=== PATIENT | female | born 1995 | race Caucasian/White ===

== ENCOUNTER 2021-02-28 21:03 | Emergency (ER) | payer OTHER ==
--- NOTE | 2021-02-28 21:06 | ERPHSYRPT ---
- History of Present Illness Time Seen by Provider: 02/28/21 21:05 Source: patient Exam Limitations: no limitations Physician History: This is a 25-year-old white female who has a dental fracture right upper molar tooth #1. She states that the tooth has been fractured for a while but the pain started 3 days ago. She has not seen a dentist. She tells me that she has no known drug allergies. Timing/Duration: gradual onset, days (3) Severity: mild (To moderate) ENT Location: dental (Right upper molar pain) Prearrival Treatment: no prearrival treatment Modifying Factors: Improves With: activity Associated Symptoms: tooth pain (Right upper molar) Allergies/Adverse Reactions: No Known Drug Allergies Allergy (Unverified 02/28/21 21:14) Home Medications: Vilazodone HCl [Viibryd] 40 mg PO DAILY 02/28/21 [History] Travel Risk - International Travel Have you traveled outside of the country in past 3 weeks: No - Coronavirus Screening Are you exhibiting any of the following symptoms?: No Close contact with a COVID-19 positive Pt in past 14-21 Days: No - Review of Systems Constitutional: No Symptoms Eyes: No Symptoms Respiratory: No Symptoms Cardiac: No Symptoms Abdominal/Gastrointestinal: No Symptoms Genitourinary Symptoms: No Symptoms Musculoskeletal: No Symptoms Skin: No Symptoms Neurological: No Symptoms Psychological: No Symptoms Endocrine: No Symptoms Hematologic/Lymphatic: No Symptoms Immunological/Allergic: No Symptoms All Other Systems: Reviewed and Negative - Past Medical History Pertinent Past Medical History: Yes - Past Surgical History Past Surgical History: Yes - Nursing Vital Signs Nursing Vital Signs: Initial Vital Signs Temperature 98.2 F 02/28/21 21:04 Pulse Rate 86 02/28/21 21:04 Respiratory Rate 18 02/28/21 21:04 O2 Sat by Pulse Oximetry 98 02/28/21 21:04 Pain Scale Pain Intensity 8 - Physical Exam General Appearance: mild distress, alert, anxiety Eye Exam: bilateral eye: normal inspection, PERRL, EOMI Ear Exam: bilateral ear: auricle normal Nasal Exam: normal inspection Throat Exam: pharynx normal, dental tenderness (Fractured tooth molar #1 right upper), No foreign body, No uvula swelling Neck Exam: normal inspection, non-tender, supple, full range of motion, trachea midline Cardiovascular/Respiratory Exam: chest non-tender, no respiratory distress Abdominal Exam: non-tender Neurologic Exam: alert, oriented x 3, cooperative, station supervisor II-XII nml as tested, normal mood/affect, nml cerebellar function, nml station & gait, sensation nml Skin Exam: normal color, warm, dry SpO2 Interpretation: normal O2 Delivery: Room Air - Course Nursing assessment & vital signs reviewed: Yes - Progress Progress: unchanged Counseled pt/family regarding: diagnosis, need for follow-up, rad results - Departure Departure Disposition: Home Clinical Impression: Dental infection, Pain, dental Condition: Stable Critical Care Time: No Referrals: MIRIAN BUSH PA [Primary Care Provider] - Follow up/PCP as directed Additional Instructions: Follow-up with a dentist tomorrow for definitive care. Add ibuprofen 600 mg with food 3 times a day. May also use Tylenol 650 mg orally every 6 hours for pain control beginning tomorrow afternoon Prescriptions: Amoxicillin 500 mg Cap [Amoxil 500 mg] 500 mg PO TID #30 cap
[2021-02-28 21:34] VITALS: O2SAT 98
[2021-02-28] MEDS ORDERED: AMOXIL 500 MG PO ONE (21:47)
[2021-02-28] MEDS ORDERED: NORCO 5/325 MG PO ONE (21:47)
[2021-02-28] MEDS ORDERED: NORCO 5/325 MG ONE (21:59)
[2021-02-28] MEDS ORDERED: AMOXIL 500 MG ONE (22:00)
[2021-02-28 22:13] VITALS: BP 172/111; PULSE 69
== END 2021-02-28 22:13 | disposition home or self-care (01) ==
LOC: ED 21:03
DX: K04.7 Periapical abscess without sinus (principal); K03.81 Cracked tooth
CPT/HCPCS: 99283; A9270-GY

== ENCOUNTER 2021-06-29 13:04 | Emergency (ER) | payer OTHER ==
[2021-06-29 14:13] LABS: Bacteria FEW /HPF (NEGATIVE); Epithelial Cells FEW /HPF (FEW); Mucus MODERATE /HPF (NEGATIVE); WBC 26-50 /HPF (0-5)
[2021-06-29 14:17] LABS: Appearance SLIGHTLY CLOUDY (CLEAR); Bilirubin NEGATIVE (NEGATIVE); Glucose NEGATIVE (NEGATIVE); Ketones NEGATIVE (NEGATIVE); Nitrite NEGATIVE (NEGATIVE); Ph 6.5 (5-6); Protein,Urine Dip TRACE (Negative); RBC NEGATIVE Ery/ul (0-5); Urine Cultured Indicated? YES; Urobilinogen 1 mg/dL (0-1)
[2021-06-29 14:18] LABS: Dipstick done @ ? MAIN LAB
--- NOTE | 2021-06-29 14:48 | ERPHSYRPT ---
- History of Present Illness Time Seen by Provider: 06/29/21 13:35 Source: patient Exam Limitations: no limitations Patient Subjective Stated Complaint: Pt states that she is 6.3 weeks and is having some cramping on the left lower side and was bleeding a little bit yesterday and does always bleed after sex and so they stopped approx 4 days ago Triage Nursing Assessment: Pt brought to the ER by her grandmother, hypertensive, rates abdominal cramping as 07/30, this is her 2nd child, other is 5 years old, pulses normal, skin n/w/d, no difficulties with bowel movements, pt states that she is on macrobid for a UTI and she has been on it for approx 3 days, doesn't appear to be in any distress Physician History: Patient is a 25-year-old female presents to our ED with left-sided pelvic cramping. Patient currently being treated for urinary tract infection. Patient is currently 3.1 weeks . She is G2, P1. Patient describes pain as a cramping sensation in her left pelvis. Patient had some slight spotting yesterday. No active bleeding today. No fever. No nausea or vomiting. No diarrhea. No rash. Symptoms are mild to moderate in intensity. No specific worsening improving factors. Patient has not followed up with an [employer] [employer] physician as of yet. But patient states she plans on seeing Dr. Leblanc. Patient voices no other complaint or concerns at this time. Timing/Duration: today Severity: moderate Modifying Factors: Improves With: nothing Associated Symptoms: denies symptoms Allergies/Adverse Reactions: No Known Drug Allergies Allergy (Verified 06/29/21 13:39) Home Medications: Nitrofurantoin Macro 100 mg [Macrobid 100MG Capsule] 100 mg PO BID 06/29/21 [History] Hx Tetanus, Diphtheria Vaccination/Date Given: Yes Hx Influenza Vaccination/Date Given: No Travel Risk - International Travel Have you traveled outside of the country in past 3 weeks: No - Coronavirus Screening Are you exhibiting any of the following symptoms?: No - Vaccine Status Have you recieved a Covid-19 vaccination: No - Review of Systems Constitutional: No Symptoms, No Fever, No Chills Eyes: No Symptoms Ears, Nose, & Throat: No Symptoms Respiratory: No Symptoms, No Cough, No Dyspnea Cardiac: No Symptoms, No Chest Pain, No Edema, No Syncope Abdominal/Gastrointestinal: No Symptoms, No Abdominal Pain, No Nausea, No Vomiting, No Diarrhea Genitourinary Symptoms: No Symptoms, No Dysuria Musculoskeletal: No Symptoms, No Back Pain, No Neck Pain Skin: No Symptoms, No Rash Neurological: No Symptoms, No Dizziness, No Focal Weakness, No Sensory Changes Psychological: No Symptoms Endocrine: No Symptoms Hematologic/Lymphatic: No Symptoms Immunological/Allergic: No Symptoms All Other Systems: Reviewed and Negative - Past Medical History Pertinent Past Medical History: Yes Psycho-Social History: Anxiety, Depression Other Medical History: personality disorder - Past Surgical History Past Surgical History: Yes Gastrointestinal: Appendectomy - Social History Smoking Status: Current every day smoker Exposure to second hand smoke: No Drug Use: none Patient Lives Alone: No - Female History Hx Now: Yes Expected Date of Delivery: 02/19/22 - Nursing Vital Signs Nursing Vital Signs: Initial Vital Signs Temperature 97.5 F 06/29/21 13:28 Pulse Rate 97 H 06/29/21 13:28 Blood Pressure 141/82 06/29/21 13:28 O2 Sat by Pulse Oximetry 100 06/29/21 13:28 Pain Scale Pain Intensity 3 - Physical Exam General Appearance: no apparent distress, alert Eye Exam: PERRL/EOMI, eyes nml inspection Ears, Nose, Throat Exam: normal ENT inspection, TMs normal, pharynx normal, moist mucous membranes Neck Exam: normal inspection, non-tender, supple, full range of motion Respiratory Exam: normal breath sounds, lungs clear, No respiratory distress Cardiovascular Exam: regular rate/rhythm, normal heart sounds, normal peripheral pulses Gastrointestinal/Abdomen Exam: soft, normal bowel sounds, No tenderness, No mass Pelvic Exam: normal external exam, other (Cervical os is closed), No cervical m otion tenderness, No vaginal bleeding, No vaginal discharge Back Exam: normal inspection, normal range of motion, No CVA tenderness, No vertebral tenderness Extremity Exam: normal inspection, normal range of motion, pelvis stable Neurologic Exam: alert, oriented x 3, cooperative, normal mood/affect, nml cerebellar function, nml station & gait, sensation nml, No motor deficits Skin Exam: normal color, warm, dry, No rash Lymphatic Exam: No adenopathy SpO2 Interpretation: normal SpO2: 100 O2 Delivery: Room Air - Course Nursing assessment & vital signs reviewed: Yes Ordered Tests: Active Orders 24 hr Category Date Time Status OB <14 WKS 1ST GESTATION [US] Stat Exams 06/29/21 13:52 Completed CBC W DIFF Stat Lab 06/29/21 15:00 Completed CMP Stat Lab 06/29/21 15:00 Completed CULTURE,URINE Stat Lab 06/29/21 Received HCG, Quantitative (Inhouse) Stat Lab 06/29/21 15:48 Completed HCG,QUALITATIVE URINE Stat Lab 06/29/21 13:52 Completed UA W/RFX CULTURE Stat Lab 06/29/21 Completed Wet Prep Stat Lab 06/29/21 Completed Medication Summary Discontinued Medications Generic Name Dose Route Start Last Admin Trade Name Freq PRN Reason Stop Dose Admin Azithromycin 1,000 mg 06/29/21 16:33 Azithromycin 250 Mg Tablet PO 06/29/21 16:34 STAT ONE Nitrofurantoin Macrocrystals 100 mg 06/29/21 15:41 06/29/21 15:46 Nitrofurantoin Macro 100 Mg Capsule PO 06/29/21 15:42 Not Given STAT ONE Potassium Chloride 40 meq 06/29/21 16:32 Potassium Chloride 10 Meq Tablet PO 06/29/21 16:33 STAT ONE Lab/Rad Data: Laboratory Result Diagrams 06/29/21 15:00 06/29/21 15:00 Laboratory Results 06/29/21 06/29/21 06/29/21 Range/Units Unknown Unknown Unknown WBC (4.0-10.5) K/mm3 RBC (4.1-5.4) M/mm3 Hgb (12.0-16.0) gm/dl Hct (35-47) % MCV (78-100) fl MCH (26-32) pg MCHC (32-36) g/dl RDW (11.5-14.0) % Plt Count (150-450) K/mm3 MPV (7.5-11.0) fl Gran % (36.0-66.0) % Eos # (Auto) (0-0.5) Absolute Lymphs (auto) (1.0-4.6) Absolute Monos (auto) (0.0-1.3) Lymphocytes % (24.0-44.0) % Monocytes % (0.0-12.0) % Eosinophils % (0.00-5.0) % Basophils % (0.0-0.4) % Absolute Granulocytes (1.4-6.9) Basophils # (0-0.4) Sodium (137-145) mmol/L Potassium (3.5-5.1) mmol/L Chloride (98-107) mmol/L Carbon Dioxide (22-30) mmol/L Anion Gap (5-15) MEQ/L BUN (7-17) mg/dL Creatinine (0.52-1.04) mg/dL Estimated GFR ML/MIN Glucose (74-106) mg/dL Calcium (8.4-10.2) mg/dL Total Bilirubin (0.2-1.3) mg/dL AST (14-36) U/L ALT (0-35) U/L Alkaline Phosphatase (38-126) U/L Serum Total Protein (6.3-8.2) g/dL Albumin (3.5-5.0) g/dL Beta HCG, Quant mIU/ml Urinalys Dipstick Clnc MAIN LAB Urine Color YELLOW (YELLOW) Urine Appearance SLIGHTLY CLOUDY (CLEAR) Urine pH 6.5 (5-6) Ur Specific [place] 1.030 (1.005-1.025) POC Urine Protein Conf TRACE (Negative) Urine Ketones NEGATIVE (NEGATIVE) Urine Nitrite NEGATIVE (NEGATIVE) Urine Bilirubin NEGATIVE (NEGATIVE) Urine Urobilinogen 1 (0-1) mg/dL Urine Leukocytes MODERATE (NEGATIVE) Urine WBC (Auto) 26-50 (0-5) /HPF Urine RBC (Auto) 6-10 (0-2) /HPF U Epithel Cells (Auto) FEW (FEW) /HPF Urine Bacteria (Auto) FEW (NEGATIVE) /HPF Urine RBC NEGATIVE (0-5) Kory/ul Urine Mucus (Auto) MODERATE (NEGATIVE) /HPF Ur Culture Indicated? YES Urine Glucose NEGATIVE (NEGATIVE) mg/dL Urine HCG, Qual (Negative) WBC (Wet Prep) Moderate RBC (Wet Prep) Rare Epi Cells (Wet Prep) Moderate Bacteria (Wet Prep) Moderate Clue Cells (Wet Prep) None Seen Trichomonas (Wet Prep) None Seen Budding Yeast (Wet Prp) None Seen Chlamydia DNA Probe DETECTED (NEGATIVE) N.gonorrhoeae DNA Probe NOT DETECTED (NEGATIVE) ABO Group Rh Factor Antibody Screen (NEGATIVE) 06/29/21 06/29/21 06/29/21 Range/Units 15:48 15:00 15:00 WBC (4.0-10.5) K/mm3 RBC (4.1-5.4) M/mm3 Hgb (12.0-16.0) gm/dl Hct (35-47) % MCV (78-100) fl MCH (26-32) pg MCHC (32-36) g/dl RDW (11.5-14.0) % Plt Count (150-450) K/mm3 MPV (7.5-11.0) fl Gran % (36.0-66.0) % Eos # (Auto) (0-0.5) Absolute Lymphs (auto) (1.0-4.6) Absolute Monos (auto) (0.0-1.3) Lymphocytes % (24.0-44.0) % Monocytes % (0.0-12.0) % Eosinophils % (0.00-5.0) % Basophils % (0.0-0.4) % Absolute Granulocytes (1.4-6.9) Basophils # (0-0.4) Sodium 138 (137-145) mmol/L Potassium 3.4 L (3.5-5.1) mmol/L Chloride 103 (98-107) mmol/L Carbon Dioxide 23 (22-30) mmol/L Anion Gap 15.9 H (5-15) MEQ/L BUN 6 L (7-17) mg/dL Creatinine 0.49 L (0.52-1.04) mg/dL Estimated GFR > 60.0 ML/MIN Glucose 80 (74-106) mg/dL Calcium 9.1 (8.4-10.2) mg/dL Total Bilirubin 0.50 (0.2-1.3) mg/dL AST 24 (14-36) U/L ALT 18 (0-35) U/L Alkaline Phosphatase 77 (38-126) U/L Serum Total Protein 8.2 (6.3-8.2) g/dL Albumin 4.4 (3.5-5.0) g/dL Beta HCG, Quant 39903 mIU/ml Urinalys Dipstick Clnc Urine Color (YELLOW) Urine Appearance (CLEAR) Urine pH (5-6) Ur Specific [place] (1.005-1.025) POC Urine Protein Conf (Negative) Urine Ketones (NEGATIVE) Urine Nitrite (NEGATIVE) Urine Bilirubin (NEGATIVE) Urine Urobilinogen (0-1) mg/dL Urine Leukocytes (NEGATIVE) Urine WBC (Auto) (0-5) /HPF Urine RBC (Auto) (0-2) /HPF U Epithel Cells (Auto) (FEW) /HPF Urine Bacteria (Auto) (NEGATIVE) /HPF Urine RBC (0-5) Kory/ul Urine Mucus (Auto) (NEGATIVE) /HPF Ur Culture Indicated? Urine Glucose (NEGATIVE) mg/dL Urine HCG, Qual (Negative) WBC (Wet Prep) RBC (Wet Prep) Epi Cells (Wet Prep) Bacteria (Wet Prep) Clue Cells (Wet Prep) Trichomonas (Wet Prep) Budding Yeast (Wet Prp) Chlamydia DNA Probe (NEGATIVE) N.gonorrhoeae DNA Probe (NEGATIVE) ABO Group O Rh Factor POSITIVE Antibody Screen NEGATIVE (NEGATIVE) 06/29/21 06/29/21 Range/Units 15:00 13:52 WBC 9.3 (4.0-10.5) K/mm3 RBC 4.76 (4.1-5.4) M/mm3 Hgb 12.9 (12.0-16.0) gm/dl Hct 40.5 (35-47) % MCV 85.1 (78-100) fl MCH 27.1 (26-32) pg MCHC 31.9 L (32-36) g/dl RDW 15.3 H (11.5-14.0) % Plt Count 355 (150-450) K/mm3 MPV 10.0 (7.5-11.0) fl Gran % 63.8 (36.0-66.0) % Eos # (Auto) 0.31 (0-0.5) Absolute Lymphs (auto) 2.39 (1.0-4.6) Absolute Monos (auto) 0.66 (0.0-1.3) Lymphocytes % 25.6 (24.0-44.0) % Monocytes % 7.1 (0.0-12.0) % Eosinophils % 3.3 (0.00-5.0) % Basophils % 0.2 (0.0-0.4) % Absolute Granulocytes 5.96 (1.4-6.9) Basophils # 0.02 (0-0.4) Sodium (137-145) mmol/L Potassium (3.5-5.1) mmol/L Chloride (98-107) mmol/L Carbon Dioxide (22-30) mmol/L Anion Gap (5-15) MEQ/L BUN (7-17) mg/dL Creatinine (0.52-1.04) mg/dL Estimated GFR ML/MIN Glucose (74-106) mg/dL Calcium (8.4-10.2) mg/dL Total Bilirubin (0.2-1.3) mg/dL AST (14-36) U/L ALT (0-35) U/L Alkaline Phosphatase (38-126) U/L Serum Total Protein (6.3-8.2) g/dL Albumin (3.5-5.0) g/dL Beta HCG, Quant mIU/ml Urinalys Dipstick Clnc Urine Color (YELLOW) Urine Appearance (CLEAR) Urine pH (5-6) Ur Specific [place] (1.005-1.025) POC Urine Protein Conf (Negative) Urine Ketones (NEGATIVE) Urine Nitrite (NEGATIVE) Urine Bilirubin (NEGATIVE) Urine Urobilinogen (0-1) mg/dL Urine Leukocytes (NEGATIVE) Urine WBC (Auto) (0-5) /HPF Urine RBC (Auto) (0-2) /HPF U Epithel Cells (Auto) (FEW) /HPF Urine Bacteria (Auto) (NEGATIVE) /HPF Urine RBC (0-5) Kory/ul Urine Mucus (Auto) (NEGATIVE) /HPF Ur Culture Indicated? Urine Glucose (NEGATIVE) mg/dL Urine HCG, Qual POSITIVE (Negative) WBC (Wet Prep) RBC (Wet Prep) Epi Cells (Wet Prep) Bacteria (Wet Prep) Clue Cells (Wet Prep) Trichomonas (Wet Prep) Budding Yeast (Wet Prp) Chlamydia DNA Probe (NEGATIVE) N.gonorrhoeae DNA Probe (NEGATIVE) ABO Group Rh Factor Antibody Screen (NEGATIVE) - Progress Progress: improved Progress Note: Patient reassessed. She feels well. Work-up reveals viable likely twins. Patient chlamydia positive. Patient received a gram of azithromycin in our ED. Patient has a urinary tract infection she is currently being treated with Macrobid. Hypokalemia. Potassium replaced. 06/29/21 16:33 Counseled pt/family regarding: lab results, diagnosis, need for follow-up, rad results - Departure Departure Disposition: Home Clinical Impression: UTI (urinary tract infection), Pelvic pain, Chlamydia, Hypokalemia Condition: Stable Critical Care Time: No Referrals: MIRIAN BUSH PA [Primary Care Provider] - Follow up/PCP as directed Additional Instructions: Discharge/Care Plan ELIZABETH GARCIA was seen on 06/29/21 in the Emergency Room. The patient was counseled regarding Diagnosis,Lab results, Imaging studies, need for follow up and when to return to the Emergency Room. Prescriptions given: Discharge Note I have spoken with the patient and/or caregivers. I have explained the patient's condition, diagnosis and treatment plan based on the information available to me at this time. I have answered the patient's and/or caregiver's questions and addressed any concerns. The patient and/or caregivers have as good understanding of the patient's diagnosis, condition and treatment plan as can be expected at this point. The vital signs have been stable. The patient's condition is stable and appropriate for discharge from the emergency department. The patient will pursue further outpatient evaluation with the primary care physician or other designated or consulting physician as outlined in the discharge instructions. The patient and/or caregivers are agreeable to this plan of care and follow-up instructions have been explained in detail. The patient and/or caregivers have received these instruction. The patient/and or caregivers are aware that any significant change in condition or worsening of symptoms should prompt an immediate return to this or the closest emergency department or call 911.
[2021-06-29 15:11] LABS: Absolute Neutrophil Ct (ANC) 5.96 (1.4-6.9); Basophil (Absolute #) 0.02 (0-0.4); Eosinophil % 3.3 % (0.00-5.0); Eosinophil (Absolute #) 0.31 (0-0.5); Hematocrit 40.5 % (35-47); Hemoglobin 12.9 gm/dl (12.0-16.0); Lymphocyte (Absolute #) 2.39 (1.0-4.6); Lymphocytes % 25.6 % (24.0-44.0); Mean Cell Volume 85.1 fl (78-100); Mean Corpuscular Hemoglobin 27.1 pg (26-32); Mean Corpuscular Hgb Concent. 31.9 g/dl (32-36); Monocyte (Absolute #) 0.66 (0.0-1.3); Monocytes % 7.1 % (0.0-12.0); Neutrophil % 63.8 % (36.0-66.0); Platelet Count 355 K/mm3 (150-450); Red Blood Count 4.76 M/mm3 (4.1-5.4); Red Cell Distribution Width 15.3 % (11.5-14.0); White Blood Count 9.3 K/mm3 (4.0-10.5)
--- NOTE | 2021-06-29 15:25 | XRAY ---
Exam: Transvaginal OB ultrasound, less than 14 weeks from 06/29/2021. Comparison: None. Indication: 25 year-old female with pelvic pain. Findings: An anteflexed uterus is seen measuring 8.9 cm x 5.2 cm x 6.0 cm. Within the upper uterine segment toward the left, there is a normal shaped gestational sac containing a 1.7 mm diameter yolk sac. No cardiac activity or pole is seen. The gestational sac size reveals a mean diameter of 8.5 mm suggesting a gestational age of 5 weeks, 3 day, plus or -3 days. Within the upper uterine segment toward the right of midline, there appears to be a smaller gestational sac which contains a yolk sac measuring 2.2 mm in diameter. Again, no cardiac activity or pole is seen. Mean gestational sac size is 5.8 mm consistent with a gestational age of 5 weeks, 1 day, plus or -3 days. Adjacent to this second smaller gestational sac, there are couple small curvilinear strips of fluid which could represent hemorrhage, or alternatively, a collapsing third gestational sac. No fluid is seen within the lower endometrial canal or cervical canal. No myometrial uterine mass is seen. There is no evidence of free fluid within the cul-de-sac. The maternal right ovary measures 2.6 cm x 2.5 cm. The maternal left ovary measures 2.5 cm x 3.5 cm. Normal Doppler signal and color perfusion is seen within each maternal ovary. Impression: 1. There are 2 small gestational sacs within the upper uterine segment, each containing an unremarkable small yolk sac. However, no pole or cardiac activity is seen as of yet. The gestational sac on the right is slightly smaller than the gestational sac on the left. Furthermore, there are couple curvilinear strips of fluid adjacent to the smaller gestational sac on the right. I am not sure whether this is due to adjacent subchorionic hemorrhage, or alternatively, a collapsing third gestational sac. No fluid/blood is seen within the lower endometrial canal or cervical canal. 2. The maternal ovaries appear essentially unremarkable.
[2021-06-29 15:27] LABS: ALBUMIN 4.4 g/dL (3.5-5.0); ALKALINE PHOSPHATASE 77 U/L (38-126); ANION GAP 15.9 MEQ/L (5-15); BLOOD UREA NITROGEN 6 mg/dL (7-17); CHLORIDE 103 mmol/L (98-107); Calcium 9.1 mg/dL (8.4-10.2); Carbon Dioxide 23 mmol/L (22-30); Creatinine 1 0.49 mg/dL (0.52-1.04); EST GLOMERULAR FILTRATION RATE > 60.0 ML/MIN; Glucose 80 mg/dL (74-106); Potassium 3.4 mmol/L (3.5-5.1); SGOT/AST 24 U/L (14-36); SGPT/ALT 18 U/L (0-35); SODIUM 138 mmol/L (137-145); Total Protein 8.2 g/dL (6.3-8.2)
[2021-06-29 15:29] LABS: Bacteria Moderate; Clue Cells None Seen; Red Blood Cells Rare; Trichomonas None Seen; White Blood Cells Moderate; Yeast None Seen
[2021-06-29] MEDS ORDERED: Macrobid 100MG Capsule PO ONE (15:41)
[2021-06-29 15:50] LABS: CHLAMYDIA DNA DETECTED (NEGATIVE); GC DNA Probe NOT DETECTED (NEGATIVE)
[2021-06-29 15:50] LABS: ABO TYPING O; Antibody Screen NEGATIVE (NEGATIVE); RH TYPING POSITIVE
[2021-06-29 16:06] VITALS: BP 125/80
[2021-06-29] MEDS ORDERED: Klor Con 10 MEQ PO ONE ×2 (16:32→16:37)
[2021-06-29] MEDS ORDERED: Zithromax 250 MG TABLET PO ONE (16:33)
[2021-06-29] MEDS ORDERED: Zithromax 250 MG TABLET ONE (16:37)
[2021-06-29 16:43] VITALS: PULSE 86; O2SAT 96
== END 2021-06-29 16:49 | disposition home or self-care (01) ==
LOC: ED 13:04
DX: O23.41 Unspecified infection of urinary tract in pregnancy, first trimester (principal); O98.311 Other infections with a predominantly sexual mode of transmission complicating pregnancy, first trimester; A56.8 Sexually transmitted chlamydial infection of other sites; N39.0 Urinary tract infection, site not specified; Z3A.01 Less than 8 weeks gestation of pregnancy; E87.6 Hypokalemia; Z72.0 Tobacco use
CPT/HCPCS: 36415; 76801; 80053; 81015; 84702; 84703; 85025; 86850; 86900; 86901; 87086; 87210; 87491; 87591; 99284; A9270-GY

== ENCOUNTER 2021-09-28 08:39 | Emergency (ER) | payer OTHER ==
[2021-09-28] MEDS ORDERED: TYLENOL 325 MG PO ONE (09:07)
[2021-09-28] MEDS ORDERED: Zofran 4 MG/2 ML VIAL IV ONE (09:07)
[2021-09-28] MEDS ORDERED: Sodium Chloride 0.9% 1000 ML 1,000 ML IV STA (09:07)
--- NOTE | 2021-09-28 09:07 | ERPHSYRPT ---
- History of Present Illness Time Seen by Provider: 09/28/21 09:10 Source: patient Exam Limitations: no limitations Physician History: Patient is a 26-year-old female currently 18 weeks . 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 Patient presents to our ED complaining of left sided pelvic pain. Patient also complains of decreased p.o. Patient concerned that she is dehydrated. No associated nausea vomiting or diarrhea. Patient requesting IV fluid hydration. Patient's symptoms started approximately 2 days ago. Symptoms have been progressive. Patient called her [employer] doctor, Dr. Leblanc. Patient states the office told patient to come to our ED for an evaluation. Patient is otherwise healthy. She voices no other complaint or concerns at this time. Portions of this note were created with voice recognition technology. There may be grammatical, spelling, punctuation or sound alike errors Timing/Duration: day(s) (2 days ago) Severity: moderate Modifying Factors: Improves With: nothing Associated Symptoms: loss of appetite, No nausea, No vomiting, No abdominal pain, No shortness of breath, No cough, No chills, No chest pain, No fever, No m alaise, No syncope, No seizure Allergies/Adverse Reactions: No Known Drug Allergies Allergy (Verified 09/28/21 09:09) Hx Tetanus, Diphtheria Vaccination/Date Given: Yes Hx Influenza Vaccination/Date Given: No Travel Risk - Vaccine Status Have you recieved a Covid-19 vaccination: No - Review of Systems Constitutional: No Symptoms, No Fever, No Chills Eyes: No Symptoms Ears, Nose, & Throat: No Symptoms Respiratory: No Symptoms, No Cough, No Dyspnea Cardiac: No Symptoms, No Chest Pain, No Edema, No Syncope Abdominal/Gastrointestinal: No Symptoms, No Abdominal Pain, No Nausea, No Vomiti ng, No Diarrhea Genitourinary Symptoms: No Symptoms, No Dysuria Musculoskeletal: No Symptoms, No Back Pain, No Neck Pain Skin: No Symptoms, No Rash Neurological: No Symptoms, No Dizziness, No Focal Weakness, No Sensory Changes Psychological: No Symptoms Endocrine: No Symptoms Hematologic/Lymphatic: No Symptoms Immunological/Allergic: No Symptoms All Other Systems: Reviewed and Negative - Past Medical History Pertinent Past Medical History: Yes Psycho-Social History: Anxiety, Depression - Past Surgical History Past Surgical History: Yes Gastrointestinal: Appendectomy - Social History Smoking Status: Current every day smoker Exposure to second hand smoke: No Drug Use: none Patient Lives Alone: No - Nursing Vital Signs Nursing Vital Signs: Initial Vital Signs Temperature 98.0 F 09/28/21 09:09 Pulse Rate 92 H 09/28/21 09:09 Respiratory Rate 18 09/28/21 09:09 Blood Pressure 139/67 09/28/21 09:09 O2 Sat by Pulse Oximetry 96 09/28/21 09:09 Pain Scale Pain Intensity 4 - Physical Exam General Appearance: no apparent distress, alert Eye Exam: PERRL/EOMI, eyes nml inspection Ears, Nose, Throat Exam: normal ENT inspection, TMs normal, pharynx normal, moist mucous membranes Neck Exam: normal inspection, non-tender, supple, full range of motion Respiratory Exam: normal breath sounds, lungs clear, airway intact, No respiratory distress Cardiovascular Exam: regular rate/rhythm, normal heart sounds, normal peripheral pulses Gastrointestinal/Abdomen Exam: soft, normal bowel sounds, other (Gravid abdomen, left lower pelvic pain.), No tenderness, No mass Pelvic Exam: not done (Patient declined pelvic exam. She states she had 1 done less than a month ago) Back Exam: normal inspection, normal range of motion, No CVA tenderness, No vertebral tenderness Extremity Exam: normal inspection, normal range of motion, pelvis stable Neurologic Exam: alert, oriented x 3, cooperative, normal mood/affect, nml cerebellar function, nml station & gait, sensation nml, No motor deficits Skin Exam: normal color, warm, dry, No rash Lymphatic Exam: No adenopathy SpO2 Interpretation: normal SpO2: 97 O2 Delivery: Room Air - Course Nursing assessment & vital signs reviewed: Yes - Radiology Ultrasound Exam OB Ultrasound: discussed w/radiologist (Per crime lab technician both fetuses are viabl e) Ordered Tests: Active Orders 24 hr Category Date Time Status IV Insertion STAT Care 09/28/21 09:07 Active OB LIMITED [US] Stat Exams 09/28/21 09:06 Completed CBC W DIFF Stat Lab 09/28/21 09:22 Completed CMP Stat Lab 09/28/21 09:22 Completed UA W/RFX CULTURE Stat Lab 09/28/21 09:33 Completed Medication Summary Generic Name Dose Route Start Last Admin Trade Name Freq PRN Reason Stop Dose Admin Nitrofurantoin Macrocrystals 100 mg 09/28/21 11:59 Nitrofurantoin Macro 100 Mg Capsule PO 09/28/21 12:00 STAT ONE Discontinued Medications Generic Name Dose Route Start Last Admin Trade Name Cha PRN Reason Stop Dose Admin Acetaminophen 650 mg 09/28/21 09:07 09/28/21 09:31 Acetaminophen 325 Mg Tablet PO 09/28/21 09:08 650 mg STAT ONE Administration Acetaminophen Confirm 09/28/21 09:13 Acetaminophen 325 Mg Tablet Administered 09/28/21 09:14 Dose 975 mg .ROUTE .STK-MED ONE Sodium Chloride 1,000 mls @ 999 mls/hr 09/28/21 09:07 09/28/21 10:53 Sodium Chloride 0.9% 1000 Ml IV 09/28/21 10:07 Infused .Q1H1M STA Infusion Sodium Chloride Confirm 09/28/21 09:13 Sodium Chloride 0.9% 1000 Ml Administered 09/28/21 09:14 Dose 1,000 mls @ ud .ROUTE .STK-MED ONE Ondansetron HCl 4 mg 09/28/21 09:07 09/28/21 09:32 Ondansetron Hcl 4 Mg/2 Ml Vial IV 09/28/21 09:08 Not Given STAT ONE Ondansetron HCl Confirm 09/28/21 09:12 Ondansetron Hcl 4 Mg/2 Ml Vial Administered 09/28/21 09:13 Dose 4 mg .ROUTE .STK-MED ONE Lab/Rad Data: Laboratory Result Diagrams 09/28/21 09:22 09/28/21 09:22 Laboratory Results 09/28/21 09/28/21 09/28/21 Range/Units 09:36 09:33 09:22 WBC (4.0-10.5) x10^3/uL RBC (4.1-5.4) x10^6/uL Hgb (12.0-16.0) g/dL Hct (35-47) % MCV (78-100) fL MCH (26-32) pg MCHC (32-36) g/dL RDW (11.5-14.0) % Plt Count (150-450) x10^3/uL MPV (7.5-11.0) fL Gran % (36.0-66.0) % Immature Gran % (Auto) (0.00-0.4) % Nucleat RBC Rel Count (0.00-0.1) % Eos # (Auto) (0-0.5) x10^3/uL Immature Gran # (Auto) (0.00-0.03) x10^3u/L Absolute Lymphs (auto) (1.0-4.6) x10^3/uL Absolute Monos (auto) (0.0-1.3) x10^3/uL Absolute Nucleated RBC (0.00-0.01) x10^3u/L Lymphocytes % (24.0-44.0) % Monocytes % (0.0-12.0) % Eosinophils % (0.00-5.0) % Basophils % (0.0-0.4) % Absolute Granulocytes (1.4-6.9) x10^3/uL Basophils # (0-0.4) x10^3/uL Sodium 134 L (137-145) mmol/L Potassium 4.0 (3.5-5.1) mmol/L Chloride 107 (98-107) mmol/L Carbon Dioxide 18 L (22-30) mmol/L Anion Gap 12.6 (5-15) MEQ/L BUN 5 L (7-17) mg/dL Creatinine 0.37 L (0.52-1.04) mg/dL Estimated GFR > 60.0 ML/MIN Glucose 79 (74-106) mg/dL Calcium 8.8 (8.4-10.2) mg/dL Total Bilirubin 0.20 (0.2-1.3) mg/dL AST 19 (14-36) U/L ALT 15 (0-35) U/L Alkaline Phosphatase 75 (38-126) U/L Serum Total Protein 7.3 (6.3-8.2) g/dL Albumin 3.7 (3.5-5.0) g/dL Urinalys Dipstick Clnc MAIN LAB Urine Color YELLOW (YELLOW) Urine Appearance SLIGHTLY CLOUDY (CLEAR) Urine pH 6.0 (5-6) Ur Specific [place] >=1.030 (1.005-1.025) POC Urine Protein Conf NEGATIVE (Negative) Urine Ketones NEGATIVE (NEGATIVE) Urine Nitrite NEGATIVE (NEGATIVE) Urine Bilirubin NEGATIVE (NEGATIVE) Urine Urobilinogen 1 (0-1) mg/dL Urine Leukocytes TRACE (NEGATIVE) Urine WBC (Auto) 6-10 (0-5) /HPF Urine RBC (Auto) 0-2 (0-2) /HPF U Epithel Cells (Auto) FEW (FEW) /HPF Urine Bacteria (Auto) NONE (NEGATIVE) /HPF Urine RBC NEGATIVE (0-5) Kory/ul Urine Mucus (Auto) SLIGHT (NEGATIVE) /HPF Ur Culture Indicated? NO Urine Glucose NEGATIVE (NEGATIVE) mg/dL Chlamydia DNA Probe NOT DETECTED (NEGATIVE) N.gonorrhoeae DNA Probe NOT DETECTED (NEGATIVE) 09/28/21 Range/Units 09:22 WBC 9.7 (4.0-10.5) x10^3/uL RBC 3.70 L (4.1-5.4) x10^6/uL Hgb 10.3 L (12.0-16.0) g/dL Hct 31.7 L (35-47) % MCV 85.7 (78-100) fL MCH 27.8 (26-32) pg MCHC 32.5 (32-36) g/dL RDW 15.0 H (11.5-14.0) % Plt Count 281 (150-450) x10^3/uL MPV 10.3 (7.5-11.0) fL Gran % 75.1 H (36.0-66.0) % Immature Gran % (Auto) 0.3 (0.00-0.4) % Nucleat RBC Rel Count 0.0 (0.00-0.1) % Eos # (Auto) 0.19 (0-0.5) x10^3/uL Immature Gran # (Auto) 0.03 (0.00-0.03) x10^3u/L Absolute Lymphs (auto) 1.55 (1.0-4.6) x10^3/uL Absolute Monos (auto) 0.61 (0.0-1.3) x10^3/uL Absolute Nucleated RBC 0.00 (0.00-0.01) x10^3u/L Lymphocytes % 16.0 L (24.0-44.0) % Monocytes % 6.3 (0.0-12.0) % Eosinophils % 2.0 (0.00-5.0) % Basophils % 0.3 (0.0-0.4) % Absolute Granulocytes 7.29 H (1.4-6.9) x10^3/uL Basophils # 0.03 (0-0.4) x10^3/uL Sodium (137-145) mmol/L Potassium (3.5-5.1) mmol/L Chloride (98-107) mmol/L Carbon Dioxide (22-30) mmol/L Anion Gap (5-15) MEQ/L BUN (7-17) mg/dL Creatinine (0.52-1.04) mg/dL Estimated GFR ML/MIN Glucose (74-106) mg/dL Calcium (8.4-10.2) mg/dL Total Bilirubin (0.2-1.3) mg/dL AST (14-36) U/L ALT (0-35) U/L Alkaline Phosphatase (38-126) U/L Serum Total Protein (6.3-8.2) g/dL Albumin (3.5-5.0) g/dL Urinalys Dipstick Clnc Urine Color (YELLOW) Urine Appearance (CLEAR) Urine pH (5-6) Ur Specific [place] (1.005-1.025) POC Urine Protein Conf (Negative) Urine Ketones (NEGATIVE) Urine Nitrite (NEGATIVE) Urine Bilirubin (NEGATIVE) Urine Urobilinogen (0-1) mg/dL Urine Leukocytes (NEGATIVE) Urine WBC (Auto) (0-5) /HPF Urine RBC (Auto) (0-2) /HPF U Epithel Cells (Auto) (FEW) /HPF Urine Bacteria (Auto) (NEGATIVE) /HPF Urine RBC (0-5) Kory/ul Urine Mucus (Auto) (NEGATIVE) /HPF Ur Culture Indicated? Urine Glucose (NEGATIVE) mg/dL Chlamydia DNA Probe (NEGATIVE) N.gonorrhoeae DNA Probe (NEGATIVE) - Progress Progress: improved Progress Note: Patient reassessed. She is well. Pain significantly improved. IV fluids administered. Ultrasound reveals both feet is viable. UTI observed on urinalysis. Patient received a dose of Macrobid in our ED. A prescription for Macrobid was forwarded to patient's pharmacy case discussed with Dr. Leblanc. Patient agrees to follow-up with Dr. Leblanc within 48 hours for evaluation. Portions of this note were created with voice recognition technology. There may be grammatical, spelling, punctuation or sound alike errors 09/28/21 12:04 Discussed with DrNixon: Sixto Will see patient in: office Counseled pt/family regarding: lab results, diagnosis, need for follow-up, rad results - Departure Departure Disposition: Home Clinical Impression: UTI (urinary tract infection), Dehydration Condition: Stable Critical Care Time: No Referrals: MIRIAN BUSH PA [NON-STAFF PHY W/O PRIVILEGES] - Follow up/PCP as directed Additional Instructions: Discharge/Care Plan GARCIAELIZABETH CLARK was seen on 09/28/21 in the Emergency Room. The patient was counseled regarding Diagnosis,Lab results, Imaging studies, need for follow up and when to return to the Emergency Room. Prescriptions given: Discharge Note I have spoken with the patient and/or caregivers. I have explained the patient's condition, diagnosis and treatment plan based on the information available to me at this time. I have answered the patient's and/or caregiver's questions and addressed any concerns. The patient and/or caregivers have as good understanding of the patient's diagnosis, condition and treatment plan as can be expected at this point. The vital signs have been stable. The patient's condition is stable and appropriate for discharge from the emergency department. The patient will pursue further outpatient evaluation with the primary care physician or other designated or consulting physician as outlined in the discharge instructions. The patient and/or caregivers are agreeable to this plan of care and follow-up instructions have been explained in detail. The patient and/or caregivers have received these instruction. The patient/and or caregivers are aware that any significant change in condition or worsening of symptoms should prompt an immediate return to this or the closest emergency department or call 911. Prescriptions: Nitrofurantoin Macro 100 mg [Macrobid 100MG Capsule] 100 mg PO BID 7 Days #14 cap
[2021-09-28] MEDS ORDERED: Zofran 4 MG/2 ML VIAL ONE (09:12)
[2021-09-28] MEDS ORDERED: Sodium Chloride 0.9% 1000 ML 1,000 ML ONE (09:13)
[2021-09-28] MEDS ORDERED: TYLENOL 325 MG ONE (09:13)
[2021-09-28 09:26] LABS: Absolute Neutrophil Ct (ANC) 7.29 x10^3/uL (1.4-6.9); Basophil (Absolute #) 0.03 x10^3/uL (0-0.4); Eosinophil (Absolute #) 0.19 x10^3/uL (0-0.5); Hematocrit 31.7 % (35-47); Hemoglobin 10.3 g/dL (12.0-16.0); Lymphocyte (Absolute #) 1.55 x10^3/uL (1.0-4.6); Mean Cell Volume 85.7 fL (78-100); Mean Corpuscular Hemoglobin 27.8 pg (26-32); Mean Corpuscular Hgb Concent. 32.5 g/dL (32-36); Mean Platelet Volume 10.3 fL (7.5-11.0); Monocyte (Absolute #) 0.61 x10^3/uL (0.0-1.3); Monocytes % 6.3 % (0.0-12.0); Neutrophil % 75.1 % (36.0-66.0); Platelet Count 281 x10^3/uL (150-450); White Blood Count 9.7 x10^3/uL (4.0-10.5)
[2021-09-28 09:31] VITALS: PULSE 92
[2021-09-28 09:39] LABS: Appearance SLIGHTLY CLOUDY (CLEAR); Bilirubin NEGATIVE (NEGATIVE); Dipstick done @ ? MAIN LAB; Glucose NEGATIVE (NEGATIVE); Ketones NEGATIVE (NEGATIVE); Nitrite NEGATIVE (NEGATIVE); Protein,Urine Dip NEGATIVE (Negative); RBC NEGATIVE Ery/ul (0-5); Specific Gravity >=1.030 (1.005-1.025); Urobilinogen 1 mg/dL (0-1)
[2021-09-28 09:42] LABS: Epithelial Cells FEW /HPF (FEW); Mucus SLIGHT /HPF (NEGATIVE); RBC 0-2 /HPF (0-2)
[2021-09-28 09:43] LABS: ALBUMIN 3.7 g/dL (3.5-5.0); ALKALINE PHOSPHATASE 75 U/L (38-126); ANION GAP 12.6 MEQ/L (5-15); BLOOD UREA NITROGEN 5 mg/dL (7-17); CHLORIDE 107 mmol/L (98-107); Calcium 8.8 mg/dL (8.4-10.2); Carbon Dioxide 18 mmol/L (22-30); Creatinine 1 0.37 mg/dL (0.52-1.04); EST GLOMERULAR FILTRATION RATE > 60.0 ML/MIN; Glucose 79 mg/dL (74-106); SGOT/AST 19 U/L (14-36); SGPT/ALT 15 U/L (0-35); SODIUM 134 mmol/L (137-145); Total Protein 7.3 g/dL (6.3-8.2)
--- NOTE | 2021-09-28 10:06 | XRAY ---
Indication: Pelvic pain. Limited twin OB ultrasound performed. Comparison: August 02, 2021 Again viable intrauterine twin . Twin A and twin B heart rate is both 144 BPM. Comment: Preliminary report was given.
[2021-09-28 10:15] LABS: Urine Cultured Indicated? NO
[2021-09-28 11:12] LABS: CHLAMYDIA DNA NOT DETECTED (NEGATIVE); GC DNA Probe NOT DETECTED (NEGATIVE)
[2021-09-28] MEDS ORDERED: Macrobid 100MG Capsule PO ONE (11:59)
[2021-09-28] MEDS ORDERED: Macrobid 100MG Capsule ONE (12:05)
[2021-09-28 12:09] VITALS: BP 121/70; O2SAT 95
== END 2021-09-28 12:18 | disposition home or self-care (01) ==
LOC: ED 08:39
DX: O23.42 Unspecified infection of urinary tract in pregnancy, second trimester (principal); N39.0 Urinary tract infection, site not specified; Z3A.18 18 weeks gestation of pregnancy; E86.0 Dehydration; R10.2 Pelvic and perineal pain; Z72.0 Tobacco use; Z28.310 Unvaccinated for COVID-19
CPT/HCPCS: 36000; 36415; 76815; 80053; 81015; 85025; 87491; 87591; 96360; 99284; J2405; A9270-GY

== ENCOUNTER 2021-12-20 16:39 | Observation (INO) | payer OTHER ==
[2021-12-20 17:35] LABS: Absolute Neutrophil Ct (ANC) 6.45 x10^3/uL (1.4-6.9); Basophil (Absolute #) 0.01 x10^3/uL (0-0.4); Eosinophil (Absolute #) 0.17 x10^3/uL (0-0.5); Hematocrit 26.9 % (35-47); Lymphocyte (Absolute #) 1.42 x10^3/uL (1.0-4.6); Lymphocytes % 16.3 % (24.0-44.0); Mean Cell Volume 81.3 fL (78-100); Mean Corpuscular Hemoglobin 24.2 pg (26-32); Mean Corpuscular Hgb Concent. 29.7 g/dL (32-36); Mean Platelet Volume 10.5 fL (7.5-11.0); Monocyte (Absolute #) 0.62 x10^3/uL (0.0-1.3); Monocytes % 7.1 % (0.0-12.0); Neutrophil % 74.2 % (36.0-66.0); Platelet Count 300 x10^3/uL (150-450); Red Blood Count 3.31 x10^6/uL (4.1-5.4); Red Cell Distribution Width 14.8 % (11.5-14.0); White Blood Count 8.7 x10^3/uL (4.0-10.5)
[2021-12-20 17:49] LABS: ALBUMIN 3.3 g/dL (3.5-5.0); ALKALINE PHOSPHATASE 110 U/L (38-126); ANION GAP 8.2 MEQ/L (5-15); BLOOD UREA NITROGEN 6 mg/dL (7-17); CHLORIDE 109 mmol/L (98-107); Calcium 8.5 mg/dL (8.4-10.2); Carbon Dioxide 21 mmol/L (22-30); Creatinine 1 0.41 mg/dL (0.52-1.04); EST GLOMERULAR FILTRATION RATE > 60.0 ML/MIN; Glucose 95 mg/dL (74-106); Potassium 3.5 mmol/L (3.5-5.1); SGOT/AST 17 U/L (14-36); SGPT/ALT 13 U/L (0-35); SODIUM 135 mmol/L (137-145); Total Protein 6.7 g/dL (6.3-8.2); Uric Acid 4.1 mg/dL (2.6-6.0)
[2021-12-20 18:23] LABS: Appearance SLIGHTLY CLOUDY (CLEAR); Bacteria RARE /HPF (NEGATIVE); Bilirubin SMALL (NEGATIVE); Dipstick done @ ? MAIN LAB; Epithelial Cells RARE /HPF (FEW); Glucose NEGATIVE (NEGATIVE); Ketones TRACE (NEGATIVE); Mucus MANY /HPF (NEGATIVE); Nitrite NEGATIVE (NEGATIVE); Protein,Urine Dip 100 (Negative); RBC NEGATIVE Ery/ul (0-5); Specific Gravity >=1.030 (1.005-1.025); Urobilinogen 2 mg/dL (0-1)
[2021-12-20 18:28] LABS: Creatinine, Urine Random 316.3 mg/dl; TP, Urine Random < 5.0 mg/dl (<12); Urine Cultured Indicated? YES
[2021-12-20] MEDS ORDERED: PROCARDIA 10 MG PO ONE ×2 (18:44→19:31)
[2021-12-20] MEDS ORDERED: PROCARDIA 10 MG ONE ×2 (18:49→19:30)
[2021-12-20] MEDS ORDERED: NORCO 5/325 MG PO PRN (20:45)
[2021-12-20] MEDS ORDERED: NORCO 5/325 MG ONE (20:52)
[2021-12-20] MEDS ORDERED: Trandate 100 MG ONE (21:02)
[2021-12-20 21:28] VITALS: BP 144/82
[2021-12-20 21:29] VITALS: PULSE 114; O2SAT 97
[2021-12-20] MEDS ORDERED: Trandate 100 MG PO SCH (22:00)
== END 2021-12-20 21:16 | disposition home or self-care (01) ==
LOC: OB 16:39
PROVIDERS: ADMIT Obstetrics & Gynecology; ATTEND Obstetrics & Gynecology
DX: O30.043 Twin pregnancy, dichorionic/diamniotic, third trimester (principal); Z3A.30 30 weeks gestation of pregnancy
CPT/HCPCS: 36415; 80053; 81015; 82570; 84156; 84550; 85025; 87086; G0378; A9270-GY

== ENCOUNTER 2021-12-27 16:32 | Observation (INO) | payer OTHER ==
[2021-12-27] MEDS ORDERED: Trandate 100 MG PO ONE ×2 (16:54→18:30)
[2021-12-27] MEDS ORDERED: Trandate 100 MG ONE (16:58)
[2021-12-27 17:06] LABS: Hematocrit 27.3 % (35-47); Hemoglobin 8.1 g/dL (12.0-16.0); Mean Cell Volume 84.3 fL (78-100); Mean Corpuscular Hgb Concent. 29.7 g/dL (32-36); Mean Platelet Volume 10.9 fL (7.5-11.0); Platelet Count 290 x10^3/uL (150-450); Red Blood Count 3.24 x10^6/uL (4.1-5.4); Red Cell Distribution Width 16.3 % (11.5-14.0); White Blood Count 14.2 x10^3/uL (4.0-10.5)
[2021-12-27 17:16] LABS: ALBUMIN 3.4 g/dL (3.5-5.0); ALKALINE PHOSPHATASE 116 U/L (38-126); ANION GAP 11.9 MEQ/L (5-15); BLOOD UREA NITROGEN 10 mg/dL (7-17); CHLORIDE 108 mmol/L (98-107); Calcium 9.3 mg/dL (8.4-10.2); Carbon Dioxide 20 mmol/L (22-30); Creatinine 1 0.58 mg/dL (0.52-1.04); EST GLOMERULAR FILTRATION RATE > 60.0 ML/MIN; Glucose 115 mg/dL (74-106); SGOT/AST 21 U/L (14-36); SGPT/ALT 17 U/L (0-35); SODIUM 136 mmol/L (137-145); Total Protein 6.7 g/dL (6.3-8.2); Uric Acid 5.8 mg/dL (2.6-6.0)
[2021-12-27 18:06] LABS: Bacteria RARE /HPF (NEGATIVE); Epithelial Cells RARE /HPF (FEW); Mucus SLIGHT /HPF (NEGATIVE); RBC 0-2 /HPF (0-2)
[2021-12-27 18:11] LABS: Appearance CLEAR (CLEAR); Bilirubin NEGATIVE (NEGATIVE); Dipstick done @ ? MAIN LAB; Glucose NEGATIVE (NEGATIVE); Ketones NEGATIVE (NEGATIVE); Nitrite NEGATIVE (NEGATIVE); Protein,Urine Dip 30 (Negative); RBC NEGATIVE Ery/ul (0-5); Specific Gravity >=1.030 (1.005-1.025); Urobilinogen 0.2 mg/dL (0-1)
[2021-12-27 18:16] LABS: Creatinine, Urine Random 167.7 mg/dl; Protein Creatinine Ratio, Ran. 0.29 mg/mg (0.0-0.15); Urine Cultured Indicated? NO
[2021-12-27] MEDS ORDERED: Ambien 5 MG Tablet PO PRN (18:34)
[2021-12-27] MEDS ORDERED: Trandate 100 MG PO SCH (21:00)
[2021-12-27] MEDS ORDERED: Tums EX 750 MG PO PRN (22:11)
[2021-12-28] MEDS ORDERED: TRANDATE 100MG/20 ML MDV IV PRN ×2 (04:36)
[2021-12-28] MEDS ORDERED: TRANDATE 100MG/20 ML MDV IV ONE (04:36)
[2021-12-28] MEDS ORDERED: TRANDATE 100 MG/20 ML MDV FOR DRIP IV ONE (05:12)
[2021-12-28] MEDS ORDERED: Magnesium Sulfate 40 Gm/1000 Ml H2O Premix*** 1,000 ML IV SCH (05:30)
[2021-12-28] MEDS ORDERED: Lactated Ringers 1,000 ML IV SCH (05:30)
[2021-12-28 05:49] LABS: Hematocrit 26.3 % (35-47); Hemoglobin 7.8 g/dL (12.0-16.0); Mean Cell Volume 82.4 fL (78-100); Mean Corpuscular Hemoglobin 24.5 pg (26-32); Mean Corpuscular Hgb Concent. 29.7 g/dL (32-36); Mean Platelet Volume 11.2 fL (7.5-11.0); Platelet Count 274 x10^3/uL (150-450); Red Blood Count 3.19 x10^6/uL (4.1-5.4); Red Cell Distribution Width 17.2 % (11.5-14.0); White Blood Count 12.4 x10^3/uL (4.0-10.5)
[2021-12-28 06:04] LABS: ALBUMIN 3.3 g/dL (3.5-5.0); ALKALINE PHOSPHATASE 109 U/L (38-126); ANION GAP 8.8 MEQ/L (5-15); BLOOD UREA NITROGEN 8 mg/dL (7-17); CHLORIDE 106 mmol/L (98-107); Calcium 9.6 mg/dL (8.4-10.2); Carbon Dioxide 21 mmol/L (22-30); Creatinine 1 0.43 mg/dL (0.52-1.04); EST GLOMERULAR FILTRATION RATE > 60.0 ML/MIN; Glucose 78 mg/dL (74-106); Potassium 4.1 mmol/L (3.5-5.1); SGOT/AST 22 U/L (14-36); SGPT/ALT 16 U/L (0-35); SODIUM 132 mmol/L (137-145); Total Protein 6.5 g/dL (6.3-8.2)
[2021-12-28 06:05] LABS: INR 0.96 (0.8-3.0); PROTIME 10.2 SECONDS (9.4-12.5); PTT 21.1 SECONDS (25.1-36.5)
[2021-12-28] MEDS ORDERED: TRANDATE 20 MG/4 ML SYRINGE IV ONE (06:28)
[2021-12-28 06:53] VITALS: BP 163/88; PULSE 84; O2SAT 94
[2021-12-28] MEDS ORDERED: APRESOLINE 20 MG/ML INJ IV ONE (07:35)
[2021-12-28 08:02] LABS: Appearance CLEAR (CLEAR); Bilirubin NEGATIVE (NEGATIVE); Glucose NEGATIVE (NEGATIVE); Ketones NEGATIVE (NEGATIVE); Nitrite NEGATIVE (NEGATIVE); Ph 6.5 (5-6); Protein,Urine Dip NEGATIVE (Negative); RBC NEGATIVE Ery/ul (0-5); Specific Gravity 1.025 (1.005-1.025); Urobilinogen 0.2 mg/dL (0-1)
[2021-12-28 08:03] LABS: Dipstick done @ ? MAIN LAB
[2021-12-28 08:04] LABS: Mucus SLIGHT /HPF (NEGATIVE); Urine Cultured Indicated? NO
== END 2021-12-28 08:03 ==
LOC: OB 16:32
PROVIDERS: ADMIT Obstetrics & Gynecology; ATTEND Obstetrics & Gynecology
DX: O30.003 Twin pregnancy, unspecified number of placenta and unspecified number of amniotic sacs, third trimester (principal); O13.3 Gestational [pregnancy-induced] hypertension without significant proteinuria, third trimester; Z3A.31 31 weeks gestation of pregnancy
CPT/HCPCS: 36415; 80053; 81015; 82570; 83735; 84156; 84550; 85027; 85610; 85730; G0378; J0360; A9270-GY

== ENCOUNTER 2024-06-03 14:34 | Emergency (ER) | payer OTHER ==
--- NOTE | 2024-06-03 14:42 | ERPHSYRPT ---
- History of Present Illness Time Seen by Provider: 06/03/24 14:42 Source: patient Exam Limitations: no limitations Physician History: This is an overweight 28-year-old white female patient who arrives to the emergency room after instructions given to her by her director economic's office. Patient was at work today and she was dizzy and therefore she took her blood pressure and it measured 152/92. She waited a bit and then repeated her blood pressure reading was 154/100. On arrival to the emergency department here she first measured 136/93. A second reading shows 130/92 at the time of my examination. Patient denies chest pain. Patient denies shortness of breath. Patient has had no complaints of vaginal bleeding. She has no visual changes. She denies headache. She has never been diagnosed with preeclampsia. Her last she had a miscarriage. She has not been on her anxiety medication because she is now . Because of her symptoms, she called the OB office and they told her to come to the emergency room for evaluation. Timing/Duration: today Severity: mild Associated Symptoms: denies symptoms Allergies/Adverse Reactions: No Known Drug Allergies Allergy (Verified 06/03/24 14:49) Home Medications: Docosahexaenoic Acid [ Dha] 1 tab PO DAILY 06/03/24 [History] Hx Tetanus, Diphtheria Vaccination/Date Given: Yes Hx Influenza Vaccination/Date Given: No Hx Pneumococcal Vaccination/Date Given: Yes Travel Risk - International Travel Have you traveled outside of the country in past 3 weeks: No - Emerging Infectious Disease Are you exhibiting symptoms associated with any current EIDs: No - Review of Systems Constitutional: No Symptoms Eyes: No Symptoms Ears, Nose, & Throat: No Symptoms Respiratory: No Symptoms Cardiac: No Symptoms Abdominal/Gastrointestinal: No Symptoms Genitourinary Symptoms: No Symptoms Musculoskeletal: No Symptoms Skin: No Symptoms Neurological: No Symptoms Psychological: No Symptoms Endocrine: No Symptoms Hematologic/Lymphatic: No Symptoms Immunological/Allergic: No Symptoms All Other Systems: Reviewed and Negative - Past Medical History Pertinent Past Medical History: Yes Psycho-Social History: Anxiety, Depression - Past Surgical History Past Surgical History: Yes Gastrointestinal: Appendectomy - Social History Smoking Status: Former smoker - Nursing Vital Signs Nursing Vital Signs: Initial Vital Signs Temperature 98.1 F 06/03/24 14:44 Pulse Rate 91 H 06/03/24 14:44 Respiratory Rate 16 06/03/24 14:44 Blood Pressure 136/93 06/03/24 14:44 O2 Sat by Pulse Oximetry 99 06/03/24 14:44 Pain Scale Pain Intensity 0 - Physical Exam General Appearance: no apparent distress, alert, anxiety Eye Exam: PERRL/EOMI, eyes nml inspection Ears, Nose, Throat Exam: normal ENT inspection, moist mucous membranes Neck Exam: normal inspection, non-tender, supple, full range of motion Respiratory Exam: normal breath sounds, lungs clear, airway intact, No chest t enderness, No respiratory distress Cardiovascular Exam: regular rate/rhythm, normal heart sounds, normal peripheral pulses Gastrointestinal/Abdomen Exam: soft, normal bowel sounds, No tenderness Pelvic Exam: not done Rectal Exam: not done Back Exam: normal inspection, normal range of motion, No CVA tenderness, No vertebral tenderness Extremity Exam: normal inspection, normal range of motion, pelvis stable Neurologic Exam: alert, oriented x 3, cooperative, extrusion operator II-XII nml as tested, nml cerebellar function, nml station & gait, sensation nml Skin Exam: normal color, warm, dry Lymphatic Exam: No adenopathy SpO2 Interpretation: normal O2 Delivery: Room Air - Course Nursing assessment & vital signs reviewed: Yes Ordered Tests: Active Orders 24 hr Category Date Time Status CBC W DIFF Stat Lab 06/03/24 15:10 Completed CMP Stat Lab 06/03/24 15:10 Completed HCG, Quantitative (Inhouse) Stat Lab 06/03/24 15:10 Completed UA W/RFX UR CULTURE Stat Lab 06/03/24 15:17 Completed Lab/Rad Data: Laboratory Result Diagrams 06/03/24 15:10 06/03/24 15:10 Laboratory Results 06/03/24 06/03/24 06/03/24 Range/Units 15:17 15:10 15:10 WBC (3.98-10.04) x10^3/uL RBC (3.93-5.22) x10^6/uL Hgb (11.2-15.7) g/dL Hct (34.1-44.9) % MCV (79.4-94.8) fL MCH (25.6-32.2) pg MCHC (32.2-35.5) g/dL RDW (11.7-14.4) % Plt Count (182-369) x10^3/uL MPV (9.4-12.3) fL Gran % (34.0-71.1) % Immature Gran % (Auto) (0.001-0.429) % Nucleat RBC Rel Count (0.00-0.2) % Eos # (Auto) (0.04-0.36) x10^3/uL Immature Gran # (Auto) (0.001-0.031) x10^3u/L Absolute Lymphs (auto) (1.18-3.74) x10^3/uL Absolute Monos (auto) (0.24-0.86) x10^3/uL Absolute Nucleated RBC (0.00-0.012) x10^3u/L Lymphocytes % (19.3-51.7) % Monocytes % (4.7-12.5) % Eosinophils % (0.7-5.8) % Basophils % (0.1-1.2) % Absolute Granulocytes (1.56-6.13) x10^3/uL Basophils # (0.01-0.08) x10^3/uL Sodium 137 (135-145) mmol/L Potassium 3.9 (3.5-5.1) mmol/L Chloride 102 (98-107) mmol/L Carbon Dioxide 20 L (22-30) mmol/L Anion Gap 18.1 H (5-15) MEQ/L BUN 9 (7-17) mg/dL Creatinine 0.56 (0.52-1.04) mg/dL Estimated GFR 129.0 ML/MIN Glucose 79 (74-106) mg/dL Calcium 9.4 (8.4-10.2) mg/dL Total Bilirubin 0.40 (0.2-1.3) mg/dL AST 24 (14-36) U/L ALT 20 (0-35) U/L Alkaline Phosphatase 78 (38-126) U/L Serum Total Protein 7.9 (6.3-8.2) g/dL Albumin 4.7 (3.5-5.0) g/dL Beta HCG, Quant 28894 mIU/ml Urine Color Yellow (Yellow) Urine Appearance Clear (Clear) Urine pH 7.0 (4.6-8.0) Ur Specific [place] <=1.005 (1.005-1.030) Urine Protein Negative (Negative) Urine Glucose (UA) Negative (Negative) mg/dL Urine Ketones Negative (Negative) Urine Blood Negative (Negative) Urine Nitrite Negative (Negative) Urine Bilirubin Negative (Negative) Urine Urobilinogen 0.2 (0.2) mg/dL Ur Leukocyte Esterase Negative (Negative) U Hyaline Cast (Auto) NONE SEEN (0-2) /LPF Urine Microscopic RBC 0-2 (0-5) /HPF Urine Microscopic WBC 0-2 (0-5) /HPF Ur Epithelial Cells None Seen (None Seen) /HPF Urine Bacteria None Seen (None Seen) /HPF Urine Culture Reflexed NO (NO) 06/03/24 Range/Units 15:10 WBC 9.3 (3.98-10.04) x10^3/uL RBC 4.82 (3.93-5.22) x10^6/uL Hgb 13.2 (11.2-15.7) g/dL Hct 41.2 (34.1-44.9) % MCV 85.5 (79.4-94.8) fL MCH 27.4 (25.6-32.2) pg MCHC 32.0 L (32.2-35.5) g/dL RDW 15.1 H (11.7-14.4) % Plt Count 292 (182-369) x10^3/uL MPV 9.6 (9.4-12.3) fL Gran % 60.4 (34.0-71.1) % Immature Gran % (Auto) 0.2 (0.001-0.429) % Nucleat RBC Rel Count 0.0 (0.00-0.2) % Eos # (Auto) 0.41 H (0.04-0.36) x10^3/uL Immature Gran # (Auto) 0.02 (0.001-0.031) x10^3u/L Absolute Lymphs (auto) 2.46 (1.18-3.74) x10^3/uL Absolute Monos (auto) 0.74 (0.24-0.86) x10^3/uL Absolute Nucleated RBC 0.00 (0.00-0.012) x10^3u/L Lymphocytes % 26.6 (19.3-51.7) % Monocytes % 8.0 (4.7-12.5) % Eosinophils % 4.4 (0.7-5.8) % Basophils % 0.4 (0.1-1.2) % Absolute Granulocytes 5.58 (1.56-6.13) x10^3/uL Basophils # 0.04 (0.01-0.08) x10^3/uL Sodium (135-145) mmol/L Potassium (3.5-5.1) mmol/L Chloride (98-107) mmol/L Carbon Dioxide (22-30) mmol/L Anion Gap (5-15) MEQ/L BUN (7-17) mg/dL Creatinine (0.52-1.04) mg/dL Estimated GFR ML/MIN Glucose (74-106) mg/dL Calcium (8.4-10.2) mg/dL Total Bilirubin (0.2-1.3) mg/dL AST (14-36) U/L ALT (0-35) U/L Alkaline Phosphatase (38-126) U/L Serum Total Protein (6.3-8.2) g/dL Albumin (3.5-5.0) g/dL Beta HCG, Quant mIU/ml Urine Color (Yellow) Urine Appearance (Clear) Urine pH (4.6-8.0) Ur Specific [place] (1.005-1.030) Urine Protein (Negative) Urine Glucose (UA) (Negative) mg/dL Urine Ketones (Negative) Urine Blood (Negative) Urine Nitrite (Negative) Urine Bilirubin (Negative) Urine Urobilinogen (0.2) mg/dL Ur Leukocyte Esterase (Negative) U Hyaline Cast (Auto) (0-2) /LPF Urine Microscopic RBC (0-5) /HPF Urine Microscopic WBC (0-5) /HPF Ur Epithelial Cells (None Seen) /HPF Urine Bacteria (None Seen) /HPF Urine Culture Reflexed (NO) - Progress Progress: unchanged Progress Note: 06/03/24 15:31 Medical decision making and the assignment of moderate complexity to this patient's medical issue today is based on review of the patient's past medical history, review of the patient's medication list, review the patient drug allergy list, history present illness and physical findings on examination. The workup in this patient includes CBC, CMP, quantitative test, urinalysis. Differential diagnosis includes but is not limited to anxiety induced hypertension, preeclampsia The patient did ask whether or not I would be ordering an ultrasound. She stated that her last miscarriage was at 6 weeks. I believe this was the primary reason why she came in. However, as I told her the important issue at this point is to make sure she does not have preeclampsia. I do not feel it is necessary at this visit in the emergency department for me to order an OB ultrasound. Patient has no significant abdominal pain and she has no vaginal bleeding. I encouraged her to call her OB office tomorrow, 06/04/2024, to make arrangements for an outpatient OB ultrasound in their office or through the radiology department. Counseled pt/family regarding: lab results, diagnosis, need for follow-up Medical Desision Making - Diagnostic Testing Diagnostic test were ordered, analyzed, and reviewed by me: Yes - Risk of complications Low Risk: Low risk of morbidity from additional dx testing or treatment - Departure Departure Disposition: Home Clinical Impression: Hypertension Condition: Stable Critical Care Time: No Referrals: TATY EARLY MINGLE OPERATOR [Primary Care Provider] - Follow up/PCP as directed Additional Instructions: Plenty fluids. Take your medications as prescribed. Call your director economic's office today, 06/03/2024, to make arrangements to be seen in the next 2 to 3 days for repeat quantitative hCG and to arrange an outpatient OB ultrasound if indicated
[2024-06-03 14:57] VITALS: TEMP 98.1
[2024-06-03 15:06] VITALS: RESP 17
[2024-06-03 15:19] LABS: Absolute Neutrophil Ct (ANC) 5.58 x10^3/uL (1.56-6.13); BASOPHIL % 0.4 % (0.1-1.2); Basophil (Absolute #) 0.04 x10^3/uL (0.01-0.08); Eosinophil % 4.4 % (0.7-5.8); Eosinophil (Absolute #) 0.41 x10^3/uL (0.04-0.36); Hematocrit 41.2 % (34.1-44.9); Hemoglobin 13.2 g/dL (11.2-15.7); IMMATURE GRAN # 0.02 x10^3u/L (0.001-0.031); IMMATURE GRAN % 0.2 % (0.001-0.429); Lymphocyte (Absolute #) 2.46 x10^3/uL (1.18-3.74); Lymphocytes % 26.6 % (19.3-51.7); Mean Cell Volume 85.5 fL (79.4-94.8); Mean Corpuscular Hemoglobin 27.4 pg (25.6-32.2); Mean Platelet Volume 9.6 fL (9.4-12.3); Monocyte (Absolute #) 0.74 x10^3/uL (0.24-0.86); Neutrophil % 60.4 % (34.0-71.1); Platelet Count 292 x10^3/uL (182-369); Red Blood Count 4.82 x10^6/uL (3.93-5.22); Red Cell Distribution Width 15.1 % (11.7-14.4); White Blood Count 9.3 x10^3/uL (3.98-10.04)
[2024-06-03 15:28] LABS: Appearance Clear (Clear); Bilirubin Negative (Negative); Blood Negative (Negative); Glucose, Urine Negative (Negative); Ketones Negative (Negative); Leukocyte Esterase Negative (Negative); Nitrite Negative (Negative); Protein,Urine Dip Negative (Negative); Specific Gravity <=1.005 (1.005-1.030); Urobilinogen 0.2 mg/dL (0.2)
[2024-06-03 15:33] LABS: ALBUMIN 4.7 g/dL (3.5-5.0); ANION GAP 18.1 MEQ/L (5-15); BILIRUBIN,TOTAL 0.4 mg/dL (0.2-1.3); Calcium 9.4 mg/dL (8.4-10.2); Creatinine 1 0.56 mg/dL (0.52-1.04); Potassium 3.9 mmol/L (3.5-5.1); Total Protein 7.9 g/dL (6.3-8.2)
[2024-06-03 15:34] LABS: Bacteria None Seen /HPF (None Seen); Epithelial Cells None Seen /HPF (None Seen); Hyaline Casts NONE SEEN /LPF (0-2); RBC 0-2 /HPF (0-5); WBC 0-2 /HPF (0-5)
[2024-06-03 16:06] VITALS: BP 111/81; PULSE 84; O2SAT 100
== END 2024-06-03 16:28 | disposition home or self-care (01) ==
LOC: ED 14:34
DX: O16.1 Unspecified maternal hypertension, first trimester (principal); Z3A.01 Less than 8 weeks gestation of pregnancy; R42 Dizziness and giddiness
CPT/HCPCS: 36415; 80053; 81001; 84702; 85025; 99282; 99283

== ENCOUNTER 2024-06-21 16:35 | Emergency (ER) | payer OTHER ==
[2024-06-21 16:56] VITALS: TEMP 98.9; O2SAT 100
[2024-06-21] MEDS ORDERED: Sodium Chloride 0.9% 1000 ML 1,000 ML ONE (17:25)
[2024-06-21] MEDS: Sodium Chloride 0.9% 1000 ML 1,000 ML IV STA (17:26)
[2024-06-21 17:33] LABS: Absolute Neutrophil Ct (ANC) 6.91 x10^3/uL (1.56-6.13); BASOPHIL % 0.3 % (0.1-1.2); Basophil (Absolute #) 0.03 x10^3/uL (0.01-0.08); Eosinophil % 3.4 % (0.7-5.8); Eosinophil (Absolute #) 0.33 x10^3/uL (0.04-0.36); Hemoglobin 12.6 g/dL (11.2-15.7); IMMATURE GRAN # 0.03 x10^3u/L (0.001-0.031); IMMATURE GRAN % 0.3 % (0.001-0.429); Lymphocyte (Absolute #) 1.85 x10^3/uL (1.18-3.74); Mean Cell Volume 85.9 fL (79.4-94.8); Mean Corpuscular Hemoglobin 27.8 pg (25.6-32.2); Mean Corpuscular Hgb Concent. 32.3 g/dL (32.2-35.5); Mean Platelet Volume 9.9 fL (9.4-12.3); Monocyte (Absolute #) 0.59 x10^3/uL (0.24-0.86); Monocytes % 6.1 % (4.7-12.5); Neutrophil % 70.9 % (34.0-71.1); Platelet Count 240 x10^3/uL (182-369); Red Blood Count 4.54 x10^6/uL (3.93-5.22); Red Cell Distribution Width 15.5 % (11.7-14.4); White Blood Count 9.7 x10^3/uL (3.98-10.04)
[2024-06-21 18:07] LABS: ALBUMIN 4.3 g/dL (3.5-5.0); ANION GAP 18.3 MEQ/L (5-15); BILIRUBIN,TOTAL 0.1 mg/dL (0.2-1.3); Calcium 9.3 mg/dL (8.4-10.2); Creatinine 1 0.45 mg/dL (0.52-1.04); Potassium 3.4 mmol/L (3.5-5.1); Total Protein 7.3 g/dL (6.3-8.2)
--- NOTE | 2024-06-21 18:27 | ERPHSYRPT ---
- History of Present Illness Time Seen by Provider: 06/21/24 16:47 Source: patient Exam Limitations: no limitations Patient Subjective Stated Complaint: Pt states "I am 9 weeks and I have been having cramping and shooting pain into my groin from my abdomen and I have been getting headaches." Triage Nursing Assessment: Pt presented alert and oriented X 3, skin pwd. Pt ambulates with an upright steady gait, able to speak in clear full sentences. PT resting comfortably on the bed. Dr. Leblanc is OB Physician History: 28 years old female 3 para 3 at almost 9 weeks gestation presented to the ER with 1 week history of off-and-on lower abdominal cramping with some shooting pain going down in the vagina, lasting for few seconds to minutes without any significant aggravating or relieving factors. Patient reports earlier today she was having pain which lasted for almost 20 minutes. She is also reporting having headache earlier with some dizziness which both are improved after taking Tylenol. Currently she has no headache, numbness tingling focal weakness. Denies any abdominal cramping currently. Patient called her primary OB office and was recommended to be seen in the ER. No vaginal bleeding or discharge reported. Denies any urinary complaints. Reports having mild lower discomfort. No fever or chills reported. Allergies/Adverse Reactions: No Known Drug Allergies Allergy (Verified 06/03/24 14:49) Home Medications: Docosahexaenoic Acid [ Dha] 1 tab PO DAILY 06/03/24 [History] Ferrous Sulfate 325 mg [Feosol 325 mg] 325 mg PO DAILY 06/21/24 [History] Ondansetron [Ondansetron Odt ] 4 mg PO Q6H PRN 06/21/24 [History] Hx Tetanus, Diphtheria Vaccination/Date Given: Yes Hx Influenza Vaccination/Date Given: No Hx Pneumococcal Vaccination/Date Given: Yes Travel Risk - International Travel Have you traveled outside of the country in past 3 weeks: No - Emerging Infectious Disease Are you exhibiting symptoms associated with any current EIDs: No - Review of Systems Constitutional: No Symptoms Eyes: No Symptoms Ears, Nose, & Throat: No Symptoms Respiratory: No Symptoms Cardiac: No Symptoms Abdominal/Gastrointestinal: Abdominal Pain Genitourinary Symptoms: Musculoskeletal: Back Pain Skin: No Symptoms Neurological: No Symptoms Psychological: No Symptoms Endocrine: No Symptoms Hematologic/Lymphatic: No Symptoms - Past Medical History Pertinent Past Medical History: Yes Cardiac History: Hypertension Psycho-Social History: Anxiety, Depression Other Medical History: personality disorder - Past Surgical History Past Surgical History: Yes Gastrointestinal: Appendectomy Female Surgical History: Section - Female History Hx Last Menstrual Period: 04/18/2024 Hx Now: Yes Gestational Age: 11 - Social History Smoking Status: Former smoker Exposure to second hand smoke: No Drug Use: none - Social Determinants of Health Will the patient participate in the screening: Declined to provide - Nursing Vital Signs Nursing Vital Signs: Initial Vital Signs Temperature 98.9 F 06/21/24 16:49 Pulse Rate 76 06/21/24 16:49 Respiratory Rate 18 06/21/24 16:49 Blood Pressure 164/91 06/21/24 16:49 O2 Sat by Pulse Oximetry 100 06/21/24 16:49 Pain Scale Pain Intensity 0 - Physical Exam General Appearance: no apparent distress, alert Eye Exam: PERRL/EOMI, eyes nml inspection Ears, Nose, Throat Exam: normal ENT inspection Neck Exam: normal inspection, non-tender, supple, full range of motion Respiratory Exam: normal breath sounds, lungs clear Cardiovascular Exam: regular rate/rhythm, normal heart sounds Gastrointestinal/Abdomen Exam: soft, normal bowel sounds, No tenderness, No distention, No guarding Back Exam: normal inspection, normal range of motion Extremity Exam: normal inspection, normal range of motion Neurologic Exam: alert, oriented x 3, cooperative, remediation project engineer II-XII nml as tested, normal mood/affect, nml cerebellar function, nml station & gait, sensation nml, No motor deficits Skin Exam: normal color SpO2 Interpretation: normal SpO2: 100 O2 Delivery: Room Air Ordered Tests: Active Orders 24 hr Category Date Time Status IV Insertion STAT Care 06/21/24 17:11 Active CBC W DIFF Stat Lab 06/21/24 17:30 Completed CMP Stat Lab 06/21/24 17:30 Completed HCG, Quantitative (Inhouse) Stat Lab 06/21/24 17:30 Completed UA W/RFX UR CULTURE Stat Lab 06/21/24 18:20 Completed Medication Summary Discontinued Medications Generic Name Dose Route Start Last Admin Trade Name Freq PRN Reason Stop Dose Admin Sodium Chloride 1,000 mls @ 999 mls/hr 06/21/24 17:11 06/21/24 18:29 Sodium Chloride 0.9% 1000 Ml IV 06/21/24 18:11 Infused .Q1H1M STA Infusion Sodium Chloride Confirm 06/21/24 17:25 Sodium Chloride 0.9% 1000 Ml Administered 06/21/24 17:26 Dose 1,000 mls @ ud .ROUTE .K-MED ONE Lab/Rad Data: Laboratory Result Diagrams 06/21/24 17:30 06/21/24 17:30 Laboratory Results 06/21/24 06/21/24 06/21/24 Range/Units 18:20 17:30 17:30 WBC 9.7 (3.98-10.04) x10^3/uL RBC 4.54 (3.93-5.22) x10^6/uL Hgb 12.6 (11.2-15.7) g/dL Hct 39.0 (34.1-44.9) % MCV 85.9 (79.4-94.8) fL MCH 27.8 (25.6-32.2) pg MCHC 32.3 (32.2-35.5) g/dL RDW 15.5 H (11.7-14.4) % Plt Count 240 (182-369) x10^3/uL MPV 9.9 (9.4-12.3) fL Gran % 70.9 (34.0-71.1) % Immature Gran % (Auto) 0.3 (0.001-0.429) % Nucleat RBC Rel Count 0.0 (0.00-0.2) % Eos # (Auto) 0.33 (0.04-0.36) x10^3/uL Immature Gran # (Auto) 0.03 (0.001-0.031) x10^3u/L Absolute Lymphs (auto) 1.85 (1.18-3.74) x10^3/uL Absolute Monos (auto) 0.59 (0.24-0.86) x10^3/uL Absolute Nucleated RBC 0.00 (0.00-0.012) x10^3u/L Lymphocytes % 19.0 L (19.3-51.7) % Monocytes % 6.1 (4.7-12.5) % Eosinophils % 3.4 (0.7-5.8) % Basophils % 0.3 (0.1-1.2) % Absolute Granulocytes 6.91 H (1.56-6.13) x10^3/uL Basophils # 0.03 (0.01-0.08) x10^3/uL Sodium 139 (135-145) mmol/L Potassium 3.4 L (3.5-5.1) mmol/L Chloride 105 (98-107) mmol/L Carbon Dioxide 19 L (22-30) mmol/L Anion Gap 18.3 H (5-15) MEQ/L BUN 5 L (7-17) mg/dL Creatinine 0.45 L (0.52-1.04) mg/dL Estimated GFR 136.0 ML/MIN Glucose 139 H (74-106) mg/dL Calcium 9.3 (8.4-10.2) mg/dL Total Bilirubin 0.10 L (0.2-1.3) mg/dL AST 25 (14-36) U/L ALT 23 (0-35) U/L Alkaline Phosphatase 74 (38-126) U/L Serum Total Protein 7.3 (6.3-8.2) g/dL Albumin 4.3 (3.5-5.0) g/dL Beta HCG, Quant 57215 mIU/ml Urine Color Yellow (Yellow) Urine Appearance Clear (Clear) Urine pH 6.5 (4.6-8.0) Ur Specific [place] 1.010 (1.005-1.030) Urine Protein Negative (Negative) Urine Glucose (UA) Negative (Negative) mg/dL Urine Ketones Negative (Negative) Urine Blood Negative (Negative) Urine Nitrite Negative (Negative) Urine Bilirubin Negative (Negative) Urine Urobilinogen 0.2 (0.2) mg/dL Ur Leukocyte Esterase Trace A (Negative) U Hyaline Cast (Auto) NONE SEEN (0-2) /LPF Urine Microscopic RBC 0-2 (0-5) /HPF Urine Microscopic WBC 3-5 (0-5) /HPF Ur Epithelial Cells None Seen (None Seen) /HPF Urine Bacteria None Seen (None Seen) /HPF Urine Culture Reflexed NO (NO) - Progress Progress: improved, re-examined Air Movement: good Progress Note: 06/21/24 18:57 28 years old 3 para 3 at almost 9 weeks gestation is evaluated in the ER for intermittent pelvic/lower abdominal cramping with radiation to the vaginal area without any bleeding or discharge. She also had a headache. Patient does not have any cramping or headache/dizziness now which improved after taking Tylenol. She is given fluids, offered pain medication which she declined. Workup showed normal white count, chemistries fairly unremarkable except for some element of dehydration. No UTI. Patient has a beta-hCG of 67 case. I have discussed with Dr. Leblanc, he has looked her record and previous visit where she had a office ultrasound, IUP, no concern for ectopic, no bleeding currently, do not think patient needs ultrasound in the ER. Recommended increase hydration and outpatient follow-up appointment as scheduled. I have shared the results of workup with patient and plan of discharge which she seems understanding. Discussed signs symptoms of worsening return to ER which she seems understanding. Stable for discharge. Complexity of problems addressed: Moderate acute Complexity of data reviewed/analyzed: Moderate Risk of complication: Low risk Discussed with Dr.: Other (Dr. Leblanc) Counseled pt/family regarding: lab results, diagnosis, need for follow-up Medical Desision Making - Discussion of managment Care discussed with:: specialist (Dr. Leblanc) Reviewed:: Test results Agreed on:: Treatment plan Will see patient: In office - Diagnostic Testing Diagnostic test were ordered, analyzed, and reviewed by me: Yes - Risk of complications The pt has a mod risk of morbidity or mortality based on: Need for prescription drug management - Departure Departure Disposition: Home Clinical Impression: Pelvic cramping in antepartum period, Dehydration Condition: Stable Critical Care Time: No Referrals: [facility] [Primary Care Provider, UNKNOWN] - Follow up with PCP 1 day SUE LEBLANC DO [ACTIVE STAFF, OBSTETRICS-GYNECOLOGY] - Follow up/PCP as directed Referral Note: as scheduled Instructions: Stomach Pain in Early Additional Instructions: increased hydration , take tylenol as needed, pelvic rest , follow up with your OB for reevaluation, return to ER for any worsening pain or if having vaginal bleeding discharge, intractable headache numbness weakness or if having fever chills.
[2024-06-21 18:31] LABS: Appearance Clear (Clear); Bacteria None Seen /HPF (None Seen); Bilirubin Negative (Negative); Blood Negative (Negative); Epithelial Cells None Seen /HPF (None Seen); Glucose, Urine Negative (Negative); Hyaline Casts NONE SEEN /LPF (0-2); Ketones Negative (Negative); Leukocyte Esterase Trace (Negative); Nitrite Negative (Negative); Ph 6.5 (4.6-8.0); Protein,Urine Dip Negative (Negative); RBC 0-2 /HPF (0-5); Urobilinogen 0.2 mg/dL (0.2)
[2024-06-21 19:20] VITALS: BP 127/84; PULSE 82; RESP 16
== END 2024-06-21 19:20 | disposition home or self-care (01) ==
LOC: ED 16:35
DX: R10.2 Pelvic and perineal pain (principal); Z3A.09 9 weeks gestation of pregnancy; E86.0 Dehydration; R51.9 Headache, unspecified; Z79.899 Other long term (current) drug therapy
CPT/HCPCS: 36415; 80053; 81001; 84702; 85025; 96360; 99283

== ENCOUNTER 2024-09-19 19:06 | Observation (INO) | payer OTHER ==
[2024-09-19 19:33] VITALS: BP 136/77; PULSE 76; RESP 16; TEMP 98.3
== END 2024-09-19 20:00 | disposition home or self-care (01) ==
LOC: OB 19:06
PROVIDERS: ADMIT Obstetrics & Gynecology; ATTEND Obstetrics & Gynecology
DX: Z34.82 Encounter for supervision of other normal pregnancy, second trimester (principal); Z3A.22 22 weeks gestation of pregnancy

== ENCOUNTER 2024-11-10 23:58 | Observation (INO) | payer OTHER ==
[2024-11-11 00:25] VITALS: BP 133/70; PULSE 83; RESP 18; TEMP 98.2; O2SAT 98
[2024-11-11 00:43] LABS: Glucose, Urine Negative (Negative); Protein,Urine Dip 30 (Negative); RBC 0-2 /HPF (0-5); WBC 21-50 /HPF (0-5)
[2024-11-11 00:54] LABS: Amphetamine,Urine NEGATIVE (NEGATIVE); Barbiturate,Urine NEGATIVE (NEGATIVE); Benzodiazepine,Urine NEGATIVE (NEGATIVE); Cocaine,Urine NEGATIVE (NEGATIVE); Methadone,Urine NEGATIVE (NEGATIVE); Opiate,Urine NEGATIVE (NEGATIVE); PCP,Urine NEGATIVE (NEGATIVE); THC,Urine NEGATIVE (NEGATIVE)
== END 2024-11-11 03:57 | disposition home or self-care (01) ==
LOC: OB 23:58
PROVIDERS: ADMIT Obstetrics & Gynecology; ATTEND Obstetrics & Gynecology
DX: Z34.83 Encounter for supervision of other normal pregnancy, third trimester (principal); Z3A.29 29 weeks gestation of pregnancy
CPT/HCPCS: 80307; 81001; 87086; G0378; G0379

== ENCOUNTER 2024-11-13 15:15 | Observation (INO) | payer OTHER ==
[2024-11-13 15:45] LABS: BASOPHIL % 0.1 % (0.1-1.2); Basophil (Absolute #) 0.01 x10^3/uL (0.01-0.08); Eosinophil (Absolute #) 0.25 x10^3/uL (0.04-0.36); Hematocrit 31.2 % (34.1-44.9); Hemoglobin 10.1 g/dL (11.2-15.7); IMMATURE GRAN # 0.04 x10^3u/L (0.001-0.031); IMMATURE GRAN % 0.5 % (0.001-0.429); Lymphocyte (Absolute #) 1.56 x10^3/uL (1.18-3.74); Mean Corpuscular Hemoglobin 28.4 pg (25.6-32.2); Mean Corpuscular Hgb Concent. 32.4 g/dL (32.2-35.5); Monocyte (Absolute #) 0.60 x10^3/uL (0.24-0.86); NUCLEATED RBC # 0.00 x10^3u/L (0.00-0.012); NUCLEATED RBC % 0.0 % (0.00-0.2); Platelet Count 270 x10^3/uL (182-369); Red Blood Count 3.56 x10^6/uL (3.93-5.22); White Blood Count 8.3 x10^3/uL (3.98-10.04)
[2024-11-13 16:02] LABS: Calcium 9.1 mg/dL (8.4-10.2); Carbon Dioxide 18 mmol/L (22-30); Creatinine 1 0.41 mg/dL (0.52-1.04); EST GLOMERULAR FILTRATION RATE 138.2 ML/MIN; Glucose 109 mg/dL (74-106); LDH-LACTATE DEHYDROGENASE 147 U/L (120-246); Potassium 3.6 mmol/L (3.5-5.1); SGOT/AST 20 U/L (14-36); SGPT/ALT 17 U/L (0-35); Total Protein 7.1 g/dL (6.3-8.2); Uric Acid 4.0 mg/dL (2.6-6.0)
[2024-11-13 16:44] LABS: Glucose, Urine Negative (Negative); Protein,Urine Dip Negative (Negative); RBC 0-2 /HPF (0-5); WBC 21-50 /HPF (0-5)
[2024-11-13 16:52] VITALS: RESP 20; TEMP 98.5
[2024-11-13 16:52] LABS: Creatinine, Urine Random 189.5 mg/dl; Protein Creatinine Ratio, Ran. 0.08 mg/mg (0.0-0.15); TP, Urine Random 15.0 mg/dl (<12)
[2024-11-13 17:09] LABS: Amphetamine,Urine NEGATIVE (NEGATIVE); Barbiturate,Urine NEGATIVE (NEGATIVE); Benzodiazepine,Urine NEGATIVE (NEGATIVE); Cocaine,Urine NEGATIVE (NEGATIVE); Methadone,Urine NEGATIVE (NEGATIVE); Opiate,Urine NEGATIVE (NEGATIVE); PCP,Urine NEGATIVE (NEGATIVE); THC,Urine NEGATIVE (NEGATIVE)
[2024-11-13 18:24] VITALS: BP 138/81; PULSE 80; O2SAT 100
== END 2024-11-13 17:30 | disposition home or self-care (01) ==
LOC: OB 15:15
PROVIDERS: ADMIT Obstetrics & Gynecology; ATTEND Obstetrics & Gynecology
DX: Z34.83 Encounter for supervision of other normal pregnancy, third trimester (principal); Z3A.29 29 weeks gestation of pregnancy

== ENCOUNTER 2024-12-31 16:11 | Observation (INO) | payer OTHER ==
[2024-12-31 16:38] VITALS: BP 127/73; PULSE 94; RESP 20; TEMP 98.6; O2SAT 96
[2024-12-31 16:51] LABS: BASOPHIL % 0.3 % (0.1-1.2); Basophil (Absolute #) 0.03 x10^3/uL (0.01-0.08); Eosinophil (Absolute #) 0.23 x10^3/uL (0.04-0.36); Hematocrit 35.6 % (34.1-44.9); Hemoglobin 11.3 g/dL (11.2-15.7); IMMATURE GRAN # 0.04 x10^3u/L (0.001-0.031); IMMATURE GRAN % 0.4 % (0.001-0.429); Lymphocyte (Absolute #) 1.75 x10^3/uL (1.18-3.74); Mean Corpuscular Hemoglobin 28.8 pg (25.6-32.2); Mean Corpuscular Hgb Concent. 31.7 g/dL (32.2-35.5); Monocyte (Absolute #) 0.63 x10^3/uL (0.24-0.86); NUCLEATED RBC # 0.00 x10^3u/L (0.00-0.012); NUCLEATED RBC % 0.0 % (0.00-0.2); Platelet Count 220 x10^3/uL (182-369); Red Blood Count 3.92 x10^6/uL (3.93-5.22); White Blood Count 9.2 x10^3/uL (3.98-10.04)
[2024-12-31 17:08] LABS: Calcium 9.1 mg/dL (8.4-10.2); Carbon Dioxide 21.0 mmol/L (22-30); Creatinine 1 0.44 mg/dL (0.52-1.04); EST GLOMERULAR FILTRATION RATE 135.9 ML/MIN; Glucose 85.0 mg/dL (74-106); Potassium 3.5 mmol/L (3.5-5.1); SGOT/AST 19.0 U/L (14-36); SGPT/ALT 13.0 U/L (0-35); Total Protein 7.6 g/dL (6.3-8.2); Uric Acid 4.6 mg/dL (2.6-6.0)
[2024-12-31 17:32] LABS: Glucose, Urine Negative (Negative); Protein,Urine Dip Negative (Negative); RBC 0-2 /HPF (0-5)
[2024-12-31 17:43] LABS: Creatinine, Urine Random 93.2 mg/dl; Protein Creatinine Ratio, Ran. 0.1 mg/mg (0.0-0.15); TP, Urine Random 9.0 mg/dl (<12)
[2024-12-31 17:53] LABS: Amphetamine,Urine NEGATIVE (NEGATIVE); Barbiturate,Urine NEGATIVE (NEGATIVE); Benzodiazepine,Urine NEGATIVE (NEGATIVE); Cocaine,Urine NEGATIVE (NEGATIVE); Methadone,Urine NEGATIVE (NEGATIVE); Opiate,Urine NEGATIVE (NEGATIVE); PCP,Urine NEGATIVE (NEGATIVE); THC,Urine NEGATIVE (NEGATIVE)
== END 2024-12-31 18:35 | disposition home or self-care (01) ==
LOC: OB.NST 16:11 → OB 16:23
PROVIDERS: ADMIT Obstetrics & Gynecology; ATTEND Obstetrics & Gynecology
DX: Z34.83 Encounter for supervision of other normal pregnancy, third trimester (principal); Z3A.36 36 weeks gestation of pregnancy

== ENCOUNTER 2025-01-09 04:51 | Inpatient (IN) | payer OTHER ==
[2025-01-09] MEDS ORDERED: Mylicon 80MG PO PRN (05:00)
[2025-01-09] MEDS ORDERED: Narcan 0.4 MG/ML IV PRN (05:00)
[2025-01-09] MEDS ORDERED: Lactated Ringers 1,000 ML IV SCH (05:00)
[2025-01-09] MEDS ORDERED: MORPHINE SULFATE 2 MG INJ IV PRN (05:00)
[2025-01-09] MEDS ORDERED: CORTISONE 1% CREAM TP PRN (05:00)
[2025-01-09] MEDS ORDERED: Zofran 4 MG/2 ML VIAL IV PRN (05:00)
[2025-01-09] MEDS ORDERED: CLARITIN 10 MG PO PRN (05:00)
[2025-01-09] MEDS ORDERED: PERCOCET TABLET 5/325MG PO PRN (05:00)
[2025-01-09] MEDS ORDERED: HOLD NARCOTIC ANALGESICS AND SEDATIVES X24 HR MC PRN (05:00)
[2025-01-09] MEDS ORDERED: Nubain 10 MG/ML IV PRN (05:00)
[2025-01-09] MEDS ORDERED: Dulcolax 10 MG SUPP PR PRN (05:00)
[2025-01-09] MEDS ORDERED: Anucort-HC SUPPOSITORY PR PRN (05:00)
[2025-01-09] MEDS ORDERED: BENADRYL 50 MG/ML IV PRN (05:00)
[2025-01-09 05:40] LABS: BASOPHIL % 0.1 % (0.1-1.2); Basophil (Absolute #) 0.01 x10^3/uL (0.01-0.08); Eosinophil (Absolute #) 0.22 x10^3/uL (0.04-0.36); Hematocrit 35.3 % (34.1-44.9); Hemoglobin 11.6 g/dL (11.2-15.7); IMMATURE GRAN # 0.04 x10^3u/L (0.001-0.031); IMMATURE GRAN % 0.5 % (0.001-0.429); Lymphocyte (Absolute #) 1.62 x10^3/uL (1.18-3.74); Mean Corpuscular Hemoglobin 29.2 pg (25.6-32.2); Mean Corpuscular Hgb Concent. 32.9 g/dL (32.2-35.5); Monocyte (Absolute #) 0.56 x10^3/uL (0.24-0.86); NUCLEATED RBC # 0.00 x10^3u/L (0.00-0.012); NUCLEATED RBC % 0.0 % (0.00-0.2); Platelet Count 215 x10^3/uL (182-369); Red Blood Count 3.97 x10^6/uL (3.93-5.22); White Blood Count 7.4 x10^3/uL (3.98-10.04)
[2025-01-09 06:11] LABS: INR 0.94 (0.8-3.0); PROTIME 10.6 SECONDS (9.4-12.5); PTT 24.5 SECONDS (25.1-36.5)
[2025-01-09 06:33] LABS: ABO TYPING O; RH TYPING POSITIVE
[2025-01-09 07:16] LABS: Glucose, Urine Negative (Negative); Protein,Urine Dip Negative (Negative); RBC 0-2 /HPF (0-5)
[2025-01-09] MEDS: SOD CITRATE-CITRIC ACID SOLN PO SCH (07:20)
[2025-01-09] MEDS: Reglan 10 MG/2 ML IV SCH (07:20)
[2025-01-09] MEDS: Pepcid 20 MG VIAL IV SCH (07:20)
[2025-01-09] MEDS: Lactated Ringers 1,000 ML IV ONE (07:21)
[2025-01-09 07:45] LABS: Amphetamine,Urine NEGATIVE (NEGATIVE); Barbiturate,Urine NEGATIVE (NEGATIVE); Benzodiazepine,Urine NEGATIVE (NEGATIVE); Cocaine,Urine NEGATIVE (NEGATIVE); Methadone,Urine NEGATIVE (NEGATIVE); Opiate,Urine NEGATIVE (NEGATIVE); PCP,Urine NEGATIVE (NEGATIVE); THC,Urine NEGATIVE (NEGATIVE)
[2025-01-09] MEDS ORDERED: Astramorph-Pf 5 MG/10 ML ONE (07:46)
[2025-01-09] MEDS ORDERED: TORAdol 30 mg Injection ONE (07:47)
[2025-01-09] MEDS ORDERED: Pitocin 10 UNITS/ML ONE (07:47)
[2025-01-09] MEDS ORDERED: PHENYLEPHRINE HCL ONE (07:47)
[2025-01-09] MEDS ORDERED: Zofran 4 MG/2 ML VIAL ONE (07:47)
[2025-01-09] MEDS ORDERED: TRANEXAMIC 1,000 MG/100ML-NACL 1,000 MG/100 ML PIGGYBACK IV ONE ×3 (08:11→10:30)
[2025-01-09] MEDS ORDERED: Xylocaine-Mpf 2% 5 Ml Vial ONE (08:12)
[2025-01-09] MEDS ORDERED: Lactated Ringers 1,000 ML IV ONE (08:23)
[2025-01-09] MEDS ORDERED: propofoL IV ONE (08:57)
[2025-01-09] MEDS ORDERED: Marcaine 0.5%/Epinephrine 10 ML ONE (09:17)
[2025-01-09 09:59] LABS: Glucose, Urine Negative (Negative); Protein,Urine Dip Negative (Negative); RBC 0-2 /HPF (0-5)
[2025-01-09 13:52] LABS: Hematocrit 33.7 % (34.1-44.9); Hemoglobin 10.8 g/dL (11.2-15.7); Mean Corpuscular Hemoglobin 29.1 pg (25.6-32.2); Mean Corpuscular Hgb Concent. 32.0 g/dL (32.2-35.5); Platelet Count 191 x10^3/uL (182-369); Red Blood Count 3.71 x10^6/uL (3.93-5.22); White Blood Count 13.9 x10^3/uL (3.98-10.04)
[2025-01-09] MEDS: LANSINOH 40 GM TOP PRN (14:17)
[2025-01-09] MEDS: Dextrose 5%-Lr IV Solution 1000 ML 1,000 ML IV SCH (14:18)
[2025-01-09] MEDS: TUCKS TP PRN (18:28)
[2025-01-09] MEDS: Dermoplast Spray TP PRN (18:28)
[2025-01-09] MEDS: Docusate Sodium 100 MG PO SCH (21:27)
[2025-01-09] MEDS: TYLENOL EXTRA STRENGTH 500 MG PO PRN (23:47)
[2025-01-10] MEDS ORDERED: CEFAZOLIN SODIUM ONE (02:13)
[2025-01-10] MEDS: MOTRIN 400 MG PO PRN (02:39)
[2025-01-10] MEDS ORDERED: DEMEROL 50 MG IV PRN (05:00)
[2025-01-10 05:17] LABS: BASOPHIL % 0.1 % (0.1-1.2); Basophil (Absolute #) 0.01 x10^3/uL (0.01-0.08); Eosinophil (Absolute #) 0.16 x10^3/uL (0.04-0.36); Hematocrit 28.1 % (34.1-44.9); Hemoglobin 9.2 g/dL (11.2-15.7); IMMATURE GRAN # 0.03 x10^3u/L (0.001-0.031); IMMATURE GRAN % 0.3 % (0.001-0.429); Lymphocyte (Absolute #) 1.33 x10^3/uL (1.18-3.74); Mean Corpuscular Hemoglobin 29.4 pg (25.6-32.2); Mean Corpuscular Hgb Concent. 32.7 g/dL (32.2-35.5); Monocyte (Absolute #) 0.60 x10^3/uL (0.24-0.86); NUCLEATED RBC # 0.00 x10^3u/L (0.00-0.012); NUCLEATED RBC % 0.0 % (0.00-0.2); Platelet Count 174 x10^3/uL (182-369); Red Blood Count 3.13 x10^6/uL (3.93-5.22); White Blood Count 8.7 x10^3/uL (3.98-10.04)
[2025-01-10] MEDS: NORCO 5/325 MG PO PRN (07:38)
--- NOTE | 2025-01-10 07:38 | PCM.NOTE ---
Date and Time: 01/10/25 0736 Subjective Assessment: pod 1 sp csection pt resting in bed and able to ambulate and tolerate diet vss afebrile abd; soft incision with dressing intact with minimal soilage uterus; firm lochia; mild hgb; 9.2 a/p sp csection pod 1 stable anticipate discharge tomorrow Objective Data Vital Signs: Vital Signs - 24 hr Temp Pulse Resp BP Pulse Ox 01/10/25 05:00 98.1 F 92 H 20 121/66 96 01/10/25 00:00 98.0 F 90 20 137/78 97 01/09/25 23:00 97 01/09/25 22:00 98 01/09/25 21:00 98 01/09/25 20:00 98 01/09/25 18:56 99 01/09/25 17:44 97.7 F 72 16 136/67 99 01/09/25 17:00 100 01/09/25 15:56 99 01/09/25 15:15 97.7 F 82 18 145/72 98 01/09/25 15:00 100 01/09/25 14:30 100 01/09/25 14:15 97.7 F 71 18 144/71 100 01/09/25 14:00 97.7 F 71 18 144/71 100 01/09/25 13:30 99 01/09/25 13:15 98.4 F 82 18 137/71 100 01/09/25 12:30 99 01/09/25 12:15 98.2 F 68 18 126/58 98 01/09/25 11:45 98.2 F 81 18 147/71 100 01/09/25 11:30 98 01/09/25 11:15 97.9 F 73 18 149/70 98 01/09/25 11:00 97.9 F 71 18 126/73 98 01/09/25 10:45 97.9 F 75 18 126/68 98 01/09/25 10:30 97.9 F 68 18 132/71 97 01/09/25 10:15 97.9 F 68 18 137/62 97 01/09/25 07:45 98.2 F 78 18 100 Pain Assessment - Last Documented Pain Intensity [isaías area] 8 Pain Intensity 3 Pain Scale Used 0-10 Pain Scale Intake and Output: Intake & Output 1101/08/25 01/09/25 01/10/25 11:59 11:59 11:59 11:59 Intake Total 8100 Output Total 50 2200 Balance -50 5900 Weight 117.934 kg Lab Results: Lab Results-Last 24 Hours 01/09/25 01/09/25 01/09/25 Range/Units 05:00 08:52 13:30 WBC 13.9 H (3.98-10.04) x10^3/uL RBC 3.71 L (3.93-5.22) x10^6/uL Hgb 10.8 L (11.2-15.7) g/dL Hct 33.7 L (34.1-44.9) % MCV 90.8 (79.4-94.8) fL MCH 29.1 (25.6-32.2) pg MCHC 32.0 L (32.2-35.5) g/dL RDW 16.7 H (11.7-14.4) % Plt Count 191 (182-369) x10^3/uL MPV 10.0 (9.4-12.3) fL Gran % (34.0-71.1) % Immature Gran % (Auto) (0.001-0.429) % Nucleat RBC Rel Count (0.00-0.2) % Eos # (Auto) (0.04-0.36) x10^3/uL Immature Gran # (Auto) (0.001-0.031) x10^3u/L Absolute Lymphs (auto) (1.18-3.74) x10^3/uL Absolute Monos (auto) (0.24-0.86) x10^3/uL Absolute Nucleated RBC (0.00-0.012) x10^3u/L Lymphocytes % (19.3-51.7) % Monocytes % (4.7-12.5) % Eosinophils % (0.7-5.8) % Basophils % (0.1-1.2) % Absolute Granulocytes (1.56-6.13) x10^3/uL Basophils # (0.01-0.08) x10^3/uL Urine Color Yellow (Yellow) Urine Appearance Clear (Clear) Urine pH 7.0 (4.6-8.0) Ur Specific [place] 1.020 (1.005-1.030) Urine Protein Negative (Negative) Urine Glucose (UA) Negative (Negative) mg/dL Urine Ketones 15 A (Negative) Urine Blood Negative (Negative) Urine Nitrite Negative (Negative) Urine Bilirubin Negative (Negative) Urine Urobilinogen 1.0 A (0.2) mg/dL Ur Leukocyte Esterase Negative (Negative) U Hyaline Cast (Auto) NONE SEEN (0-2) /LPF Urine Microscopic RBC 0-2 (0-5) /HPF Urine Microscopic WBC 3-5 (0-5) /HPF Ur Epithelial Cells Rare (None Seen) /HPF Urine Bacteria None Seen (None Seen) /HPF Urine Opiates Level NEGATIVE (NEGATIVE) Ur Methadone NEGATIVE (NEGATIVE) Urine Barbiturates NEGATIVE (NEGATIVE) Ur Phencyclidine (PCP) NEGATIVE (NEGATIVE) Urine Amphetamine NEGATIVE (NEGATIVE) U Benzodiazepine Level NEGATIVE (NEGATIVE) Urine Cocaine NEGATIVE (NEGATIVE) Urine Marijuana (THC) NEGATIVE (NEGATIVE) 01/10/25 Range/Units 05:05 WBC 8.7 (3.98-10.04) x10^3/uL RBC 3.13 L (3.93-5.22) x10^6/uL Hgb 9.2 L (11.2-15.7) g/dL Hct 28.1 L (34.1-44.9) % MCV 89.8 (79.4-94.8) fL MCH 29.4 (25.6-32.2) pg MCHC 32.7 (32.2-35.5) g/dL RDW 16.9 H (11.7-14.4) % Plt Count 174 L (182-369) x10^3/uL MPV 9.8 (9.4-12.3) fL Gran % 75.6 H (34.0-71.1) % Immature Gran % (Auto) 0.3 (0.001-0.429) % Nucleat RBC Rel Count 0.0 (0.00-0.2) % Eos # (Auto) 0.16 (0.04-0.36) x10^3/uL Immature Gran # (Auto) 0.03 (0.001-0.031) x10^3u/L Absolute Lymphs (auto) 1.33 (1.18-3.74) x10^3/uL Absolute Monos (auto) 0.60 (0.24-0.86) x10^3/uL Absolute Nucleated RBC 0.00 (0.00-0.012) x10^3u/L Lymphocytes % 15.3 L (19.3-51.7) % Monocytes % 6.9 (4.7-12.5) % Eosinophils % 1.8 (0.7-5.8) % Basophils % 0.1 (0.1-1.2) % Absolute Granulocytes 6.57 H (1.56-6.13) x10^3/uL Basophils # 0.01 (0.01-0.08) x10^3/uL Urine Color (Yellow) Urine Appearance (Clear) Urine pH (4.6-8.0) Ur Specific [place] (1.005-1.030) Urine Protein (Negative) Urine Glucose (UA) (Negative) mg/dL Urine Ketones (Negative) Urine Blood (Negative) Urine Nitrite (Negative) Urine Bilirubin (Negative) Urine Urobilinogen (0.2) mg/dL Ur Leukocyte Esterase (Negative) U Hyaline Cast (Auto) (0-2) /LPF Urine Microscopic RBC (0-5) /HPF Urine Microscopic WBC (0-5) /HPF Ur Epithelial Cells (None Seen) /HPF Urine Bacteria (None Seen) /HPF Urine Opiates Level (NEGATIVE) Ur Methadone (NEGATIVE) Urine Barbiturates (NEGATIVE) Ur Phencyclidine (PCP) (NEGATIVE) Urine Amphetamine (NEGATIVE) U Benzodiazepine Level (NEGATIVE) Urine Cocaine (NEGATIVE) Urine Marijuana (THC) (NEGATIVE) Medications: Medications Generic Name Dose Route Start Last Admin Trade Name Freq PRN Reason Stop Dose Admin Acetaminophen 500 - 1,000 mg 01/09/25 05:00 01/09/25 23:47 Acetaminophen 500 Mg Tablet PO 02/08/25 04:59 1,000 mg Q4H PRN PRN Administration MILD PAIN Hydrocodone Bitart/Acetaminophen 1 tab 01/10/25 05:00 Hydrocodone/Apap 5/325 1 Tab Tablet PO 01/15/25 04:59 Q4H PRN PRN SEVERE PAIN Benzocaine 0 gm 01/09/25 17:28 01/09/25 18:28 Benzocaine/Lanolin/Aloe Vera 85 Gm Can TP 02/08/25 17:27 85 gm UD PRN Administration HEMORRHOIDS Bisacodyl 10 mg 01/09/25 05:00 Bisacodyl 10 Mg Supp.Rect ID 02/08/25 04:59 PRN PRN CONSTIPATION Citric Acid/Sodium Citrate 30 ml 01/09/25 05:00 01/09/25 07:20 Citric Acid/Sodium Citrate 30 Ml Solution PO 02/08/25 04:59 30 ml 1HRPRIOR SUZIE Administration Docusate Sodium 100 mg 01/09/25 22:00 01/09/25 21:27 Docusate Sodium 100 Mg Capsule PO 02/08/25 21:59 100 mg BID SUZIE Administration Emollient Ointment 0 gm 01/09/25 05:00 01/09/25 14:17 Lansinoh 40 Gm Tube TOP 02/08/25 04:59 40 gm PRN PRN Administration PAIN Enoxaparin Sodium 40 mg 01/10/25 09:00 Enoxaparin Sodium 40 Mg/0.4 Ml Syringe SQ 01/10/25 09:01 1XONLY ONE Famotidine 20 mg 01/09/25 05:00 01/09/25 07:20 Famotidine 20 Mg/1 Vial IV 02/08/25 04:59 20 mg 1HRPRIOR SUZIE Administration Hydrocortisone 0.5 gm 01/09/25 05:00 Hydrocortisone 1% Cream 28 Gm Tube TP 02/08/25 04:59 PRN PRN ITCHING Hydrocortisone Acetate 25 mg 01/09/25 05:00 Hydrocortisone Acetate 25 Mg Supp.Rect ID 02/08/25 04:59 PRN PRN HEMORRHOIDS Lactated Ringer's 1,000 mls @ 30 mls/hr 01/09/25 05:00 Lactated Ringers IV 02/08/25 04:59 .Q24H SUZIE Dextrose/Lactated Ringer's 1,000 mls @ 125 mls/hr 01/09/25 05:00 01/09/25 14:18 Dextrose 5%-Lr Iv Solution 1000 Ml IV 02/08/25 04:59 125 mls/hr .Q8H SUZIE Administration Ibuprofen 800 mg 01/09/25 05:00 01/10/25 02:39 Ibuprofen 400 Mg Tablet PO 02/08/25 04:59 800 mg Q6H PRN PRN Administration MODERATE PAIN Meperidine HCl 50 mg 01/10/25 05:00 Meperidine Hcl 50 Mg/Ml Carp IV 01/15/25 04:59 Q4H PRN PRN PAIN Methylergonovine Maleate 0.2 mg 01/09/25 11:00 01/09/25 10:57 Methylergonovine Maleate 0.2 Mg/Ml Ml IM 02/08/25 10:59 0.2 mg 1XONLY SUZIE Administration Metoclopramide HCl 10 mg 01/09/25 05:00 01/09/25 07:20 Metoclopramide Hcl 10 Mg/2 Ml Vial IV 02/08/25 04:59 10 mg 1HRPRIOR SUZIE Administration Polysaccharide Iron Complex 150 mg 01/09/25 05:00 Iron Polysaccharides Complex 150 Mg Capsule PO 02/08/25 04:59 DAILY SUZIE Simethicone 80 mg 01/09/25 05:00 Simethicone 80 Mg Tab.Chew PO 02/08/25 04:59 QID PRN PRN INDIGESTION Witch Yahaira 1 pad 01/09/25 17:28 01/09/25 18:28 Witch Yahaira 1 Pad Med..Pad TP 02/08/25 17:27 1 pad PRN PRN Administration ITCHING Discontinued Medications Generic Name Dose Route Start Last Admin Trade Name Freq PRN Reason Stop Dose Admin Bupivacaine HCl/Epinephrine Bitart Confirm 01/09/25 09:17 Bupivacaine Hcl/Epinephrine 10 Ml Vial Administered 01/09/25 09:18 Dose 30 ml .ROUTE .STK-MED ONE Cefazolin Sodium Confirm 01/10/25 02:13 Cefazolin Sodium 2 Gm Vial Administered 01/10/25 02:14 Dose 2 gm .ROUTE .STK-MED ONE Diphenhydramine HCl 12.5 - 25 mg 01/09/25 05:00 Diphenhydramine Hcl 50 Mg/Ml Vial IV 01/10/25 04:59 Q6H PRN PRN ITCHING Diphtheria/Tetanus/Acell Pertussis 0.5 ml 01/09/25 14:00 Tdap --Diph,Pertuss(Acell),Tet Vac/Pf 0.5 Ml Vial IM 01/09/25 14:01 .ONCE ONE Cefazolin Sodium 2 gm/ Sodium 100 mls @ 200 mls/hr 01/09/25 05:00 01/09/25 07:21 Chloride IV 01/09/25 05:29 200 mls/hr ONCALLTOOR ONE Administration Lactated Ringer's 1,000 mls @ 999 mls/hr 01/09/25 05:00 01/09/25 07:21 Lactated Ringers IV 01/09/25 06:00 999 mls/hr .Q1H1M ONE Administration TRANEXAMIC ACID IN NACL,ISO-OS Confirm 01/09/25 08:11 Tranexamic 1,000 Mg/100ml-Nacl Administered 01/09/25 08:12 Dose 1,000 mg in 100 mls @ ud IV .STK-MED ONE Lactated Ringer's Confirm 01/09/25 08:23 Lactated Ringers Administered 01/09/25 08:24 Dose 1,000 mls @ ud IV .STK-MED ONE TRANEXAMIC ACID IN NACL,ISO-OS Confirm 01/09/25 10:29 Tranexamic 1,000 Mg/100ml-Nacl Administered 01/09/25 10:30 Dose 1,000 mg in 100 mls @ ud IV .STK-MED ONE TRANEXAMIC ACID IN NACL,ISO-OS 1,000 mg in 100 mls @ 600 mls/hr 01/09/25 10:30 Tranexamic 1,000 Mg/100ml-Nacl IV 01/09/25 10:39 ONCE ONE Cefazolin Sodium 2 gm/ Sodium 100 mls @ 200 mls/hr 01/09/25 15:30 01/10/25 02:15 Chloride IV 01/09/25 23:59 200 mls/hr Q8H SUZIE Administration Sodium Chloride Confirm 01/10/25 02:13 Sodium Chloride 0.9% Administered 01/10/25 02:14 Dose 100 mls @ ud .ROUTE .STK-MED ONE Ketorolac Tromethamine Confirm 01/09/25 07:47 Ketorolac Tromethamine 30 Mg/Ml Inj Administered 01/09/25 07:48 Dose 30 mg .ROUTE .STK-MED ONE Lidocaine HCl Confirm 01/09/25 08:12 Lidocaine - Mpf 2% 5 Ml Vial Administered 01/09/25 08:13 Dose 5 ml .ROUTE .STK-MED ONE Loratadine 10 mg 01/09/25 05:00 Loratadine 10 Mg Tablet PO 01/10/25 04:59 QDP PRN ITCHING Methylergonovine Maleate Confirm 01/09/25 10:54 Methylergonovine Maleate 0.2 Mg/Ml Ml Administered 01/09/25 10:55 Dose 0.2 mg .ROUTE .STK-MED ONE Morphine Sulfate 2 mg 01/09/25 05:00 Morphine Sulfate 2 Mg/Ml Inj IV 01/10/25 04:59 .Q30MIN PRN PRN SEVERE PAIN Morphine Sulfate Confirm 01/09/25 07:46 Morphine Sulfate 5 Mg/10 Ml Pf Ampul Administered 01/09/25 07:47 Dose 5 mg .ROUTE .STK-MED ONE Nalbuphine HCl 5 mg 01/09/25 05:00 Nalbuphine Hcl 10 Mg/Ml Ampul IV 01/10/25 04:59 Q6H PRN PRN ITCHING Naloxone HCl 0.1 mg 01/09/25 05:00 Naloxone Hcl 0.4 Mg/Ml Ml IV 01/10/25 04:59 PRN PRN as needed Non-Formulary Medication 1 each 01/09/25 05:00 Hold Narcotic Analgesics/Sedatives 1 Each Each MC 01/10/25 04:59 PRN PRN as needed Ondansetron HCl 4 mg 01/09/25 05:00 Ondansetron Hcl 4 Mg/2 Ml Vial IV 01/10/25 04:59 PRN PRN NAUSEA Ondansetron HCl Confirm 01/09/25 07:47 Ondansetron Hcl 4 Mg/2 Ml Vial Administered 01/09/25 07:48 Dose 4 mg .ROUTE .STK-MED ONE Oxycodone/Acetaminophen 1 - 2 tab 01/09/25 05:00 Oxycodone Hcl/Apap 5 Mg/325 Mg Tablet PO 01/10/25 04:59 Q4H PRN PRN as needed Oxytocin Confirm 01/09/25 07:47 Oxytocin 10 Units/Ml 10 Units/Ml Vial Administered 01/09/25 07:48 Dose 20 units .ROUTE .STK-MED ONE Phenylephrine HCl Confirm 01/09/25 07:47 Phenylephrine 10 Mg/Ml Vial Administered 01/09/25 07:48 Dose 10 mg .ROUTE .STK-MED ONE Propofol Confirm 01/09/25 08:57 Propofol 200 Mg/20 Ml Vial Administered 01/09/25 08:58 Dose 200 mg IV .STK-MED ONE Multi-Disciplinary Progress Notes: Multi-Disciplinary Progress Notes 01/09/25 08:54 Respiratory Note by Zuly Kruger PRESENT DURING . NO PROBLEMS NOTED. Initialized on 01/09/25 08:54 - END OF NOTE Assessment/Plan (1) S/P repeat low transverse Current Visit: Yes Status: Acute Code(s): Z98.891 - HISTORY OF UTERINE SCAR FROM PREVIOUS SURGERY
[2025-01-10] MEDS: ENOXAPARIN SODIUM SQ ONE (08:12)
[2025-01-10] MEDS: FERREX 150 PO SCH (10:39)
[2025-01-10] MEDS: Adacel Vial IM ONE (21:31)
[2025-01-11 09:09] VITALS: BP 133/82; PULSE 88; RESP 17; TEMP 97.8; O2SAT 98
--- NOTE | 2025-01-11 09:30 | PCM.NOTE ---
Date and Time: 01/11/25928 Subjective Assessment: pod 2 sp csection pt resting in bed able to ambulate and tolerate diet vss afebrile abd; soft incision with dressing intact with no soilage uterus; firm lochia; mild hgb; 9.2 a/p sp csection pod 2 dc home today should fu office next monday Objective Data Vital Signs: Vital Signs - 24 hr Temp Pulse Resp BP Pulse Ox 01/11/25 09:08 97.8 F 88 17 133/82 98 01/11/25 06:54 97.3 F 100 H 18 132/80 97 01/11/25 01:00 97.8 F 100 H 18 143/84 97 01/10/25 19:50 98.3 F 98 H 18 140/78 97 01/10/25 13:00 98.2 F 90 18 99/58 Pain Assessment - Last Documented Pain Intensity [isaías area] 3 Pain Intensity 3 Pain Scale Used 0-10 Pain Scale Intake and Output: Intake & Output 01/08/25 01/09/25 01/10/25 01/11/25 11:59 11:59 11:59 11:59 Intake Total 8100 Output Total 50 2200 Balance -50 5900 Weight 117.934 kg Medications: Medications Generic Name Dose Route Start Last Admin Trade Name Freq PRN Reason Stop Dose Admin Acetaminophen 500 - 1,000 mg 01/09/25 05:00 01/09/25 23:47 Acetaminophen 500 Mg Tablet PO 02/08/25 04:59 1,000 mg Q4H PRN PRN Administration MILD PAIN Hydrocodone Bitart/Acetaminophen 1 tab 01/10/25 05:00 01/11/25 07:48 Hydrocodone/Apap 5/325 1 Tab Tablet PO 01/15/25 04:59 1 tab Q4H PRN PRN Administration SEVERE PAIN Benzocaine 0 gm 01/09/25 17:28 01/09/25 18:28 Benzocaine/Lanolin/Aloe Vera 85 Gm Can TP 02/08/25 17:27 85 gm UD PRN Administration HEMORRHOIDS Bisacodyl 10 mg 01/09/25 05:00 Bisacodyl 10 Mg Supp.Rect GA 02/08/25 04:59 PRN PRN CONSTIPATION Docusate Sodium 100 mg 01/09/25 22:00 01/11/25 08:56 Docusate Sodium 100 Mg Capsule PO 02/08/25 21:59 100 mg BID SUZIE Administration Emollient Ointment 0 gm 01/09/25 05:00 01/09/25 14:17 Lansinoh 40 Gm Tube TOP 02/08/25 04:59 40 gm PRN PRN Administration PAIN Hydrocortisone 0.5 gm 01/09/25 05:00 Hydrocortisone 1% Cream 28 Gm Tube TP 02/08/25 04:59 PRN PRN ITCHING Hydrocortisone Acetate 25 mg 01/09/25 05:00 Hydrocortisone Acetate 25 Mg Supp.Rect GA 02/08/25 04:59 PRN PRN HEMORRHOIDS Ibuprofen 800 mg 01/09/25 05:00 01/11/25 08:56 Ibuprofen 400 Mg Tablet PO 02/08/25 04:59 800 mg Q6H PRN PRN Administration MODERATE PAIN Polysaccharide Iron Complex 150 mg 01/09/25 05:00 01/11/25 09:07 Iron Polysaccharides Complex 150 Mg Capsule PO 02/08/25 04:59 150 mg DAILY SUZIE Administration Simethicone 80 mg 01/09/25 05:00 Simethicone 80 Mg Tab.Chew PO 02/08/25 04:59 QID PRN PRN INDIGESTION Witch Yahaira 1 pad 01/09/25 17:28 01/09/25 18:28 Witch Yahaira 1 Pad Med..Pad TP 02/08/25 17:27 1 pad PRN PRN Administration ITCHING Discontinued Medications Generic Name Dose Route Start Last Admin Trade Name Freq PRN Reason Stop Dose Admin Bupivacaine HCl/Epinephrine Bitart Confirm 01/09/25 09:17 Bupivacaine Hcl/Epinephrine 10 Ml Vial Administered 01/09/25 09:18 Dose 30 ml .ROUTE .STK-MED ONE Cefazolin Sodium Confirm 01/10/25 02:13 Cefazolin Sodium 2 Gm Vial Administered 01/10/25 02:14 Dose 2 gm .ROUTE .STK-MED ONE Citric Acid/Sodium Citrate 30 ml 01/09/25 05:00 01/09/25 07:20 Citric Acid/Sodium Citrate 30 Ml Solution PO 02/08/25 04:59 30 ml 1HRPRIOR SUZIE Administration Diphenhydramine HCl 12.5 - 25 mg 01/09/25 05:00 Diphenhydramine Hcl 50 Mg/Ml Vial IV 01/10/25 04:59 Q6H PRN PRN ITCHING Diphtheria/Tetanus/Acell Pertussis 0.5 ml 01/09/25 14:00 01/10/25 21:31 Tdap --Diph,Pertuss(Acell),Tet Vac/Pf 0.5 Ml Vial IM 01/09/25 14:01 0.5 ml .ONCE ONE Administration Enoxaparin Sodium 40 mg 01/10/25 09:00 01/10/25 08:12 Enoxaparin Sodium 40 Mg/0.4 Ml Syringe SQ 01/10/25 09:01 40 mg 1XONLY ONE Administration Famotidine 20 mg 01/09/25 05:00 01/09/25 07:20 Famotidine 20 Mg/1 Vial IV 02/08/25 04:59 20 mg 1HRPRIOR SUZIE Administration Lactated Ringer's 1,000 mls @ 30 mls/hr 01/09/25 05:00 Lactated Ringers IV 02/08/25 04:59 .Q24H [facility] Cefazolin Sodium 2 gm/ Sodium 100 mls @ 200 mls/hr 01/09/25 05:00 01/09/25 07:21 Chloride IV 01/09/25 05:29 200 mls/hr ONCALLTOOR ONE Administration Lactated Ringer's 1,000 mls @ 999 mls/hr 01/09/25 05:00 01/09/25 07:21 Lactated Ringers IV 01/09/25 06:00 999 mls/hr .Q1H1M ONE Administration Dextrose/Lactated Ringer's 1,000 mls @ 125 mls/hr 01/09/25 05:00 01/09/25 14:18 Dextrose 5%-Lr Iv Solution 1000 Ml IV 02/08/25 04:59 125 mls/hr .Q8H SUZIE Administration TRANEXAMIC ACID IN NACL,ISO-OS Confirm 01/09/25 08:11 Tranexamic 1,000 Mg/100ml-Nacl Administered 01/09/25 08:12 Dose 1,000 mg in 100 mls @ ud IV .STK-MED ONE Lactated Ringer's Confirm 01/09/25 08:23 Lactated Ringers Administered 01/09/25 08:24 Dose 1,000 mls @ ud IV .STK-MED ONE TRANEXAMIC ACID IN NACL,ISO-OS Confirm 01/09/25 10:29 Tranexamic 1,000 Mg/100ml-Nacl Administered 01/09/25 10:30 Dose 1,000 mg in 100 mls @ ud IV .STK-MED ONE TRANEXAMIC ACID IN NACL,ISO-OS 1,000 mg in 100 mls @ 600 mls/hr 01/09/25 10:30 Tranexamic 1,000 Mg/100ml-Nacl IV 01/09/25 10:39 ONCE ONE Cefazolin Sodium 2 gm/ Sodium 100 mls @ 200 mls/hr 01/09/25 15:30 01/10/25 02:15 Chloride IV 01/09/25 23:59 200 mls/hr Q8H SUZIE Administration Sodium Chloride Confirm 01/10/25 02:13 Sodium Chloride 0.9% Administered 01/10/25 02:14 Dose 100 mls @ ud .ROUTE .STK-MED ONE Ketorolac Tromethamine Confirm 01/09/25 07:47 Ketorolac Tromethamine 30 Mg/Ml Inj Administered 01/09/25 07:48 Dose 30 mg .ROUTE .STK-MED ONE Lidocaine HCl Confirm 01/09/25 08:12 Lidocaine - Mpf 2% 5 Ml Vial Administered 01/09/25 08:13 Dose 5 ml .ROUTE .STK-MED ONE Loratadine 10 mg 01/09/25 05:00 Loratadine 10 Mg Tablet PO 01/10/25 04:59 QDP PRN ITCHING Meperidine HCl 50 mg 01/10/25 05:00 Meperidine Hcl 50 Mg/Ml Carp IV 01/15/25 04:59 Q4H PRN PRN PAIN Methylergonovine Maleate 0.2 mg 01/09/25 11:00 01/09/25 10:57 Methylergonovine Maleate 0.2 Mg/Ml Ml IM 02/08/25 10:59 0.2 mg 1XONLY SUZIE Administration Methylergonovine Maleate Confirm 01/09/25 10:54 Methylergonovine Maleate 0.2 Mg/Ml Ml Administered 01/09/25 10:55 Dose 0.2 mg .ROUTE .STK-MED ONE Metoclopramide HCl 10 mg 01/09/25 05:00 01/09/25 07:20 Metoclopramide Hcl 10 Mg/2 Ml Vial IV 02/08/25 04:59 10 mg 1HRPRIOR SUZIE Administration Morphine Sulfate 2 mg 01/09/25 05:00 Morphine Sulfate 2 Mg/Ml Inj IV 01/10/25 04:59 .Q30MIN PRN PRN SEVERE PAIN Morphine Sulfate Confirm 01/09/25 07:46 Morphine Sulfate 5 Mg/10 Ml Pf Ampul Administered 01/09/25 07:47 Dose 5 mg .ROUTE .STK-MED ONE Nalbuphine HCl 5 mg 01/09/25 05:00 Nalbuphine Hcl 10 Mg/Ml Ampul IV 01/10/25 04:59 Q6H PRN PRN ITCHING Naloxone HCl 0.1 mg 01/09/25 05:00 Naloxone Hcl 0.4 Mg/Ml Ml IV 01/10/25 04:59 PRN PRN as needed Non-Formulary Medication 1 each 01/09/25 05:00 Hold Narcotic Analgesics/Sedatives 1 Each Each 01/10/25 04:59 PRN PRN as needed Ondansetron HCl 4 mg 01/09/25 05:00 Ondansetron Hcl 4 Mg/2 Ml Vial IV 01/10/25 04:59 PRN PRN NAUSEA Ondansetron HCl Confirm 01/09/25 07:47 Ondansetron Hcl 4 Mg/2 Ml Vial Administered 01/09/25 07:48 Dose 4 mg .ROUTE .STK-MED ONE Oxycodone/Acetaminophen 1 - 2 tab 01/09/25 05:00 Oxycodone Hcl/Apap 5 Mg/325 Mg Tablet PO 01/10/25 04:59 Q4H PRN PRN as needed Oxytocin Confirm 01/09/25 07:47 Oxytocin 10 Units/Ml 10 Units/Ml Vial Administered 01/09/25 07:48 Dose 20 units .ROUTE .STK-MED ONE Phenylephrine HCl Confirm 01/09/25 07:47 Phenylephrine 10 Mg/Ml Vial Administered 01/09/25 07:48 Dose 10 mg .ROUTE .STK-MED ONE Propofol Confirm 01/09/25 08:57 Propofol 200 Mg/20 Ml Vial Administered 01/09/25 08:58 Dose 200 mg IV .STK-MED ONE Assessment/Plan (1) S/P repeat low transverse Current Visit: Yes Status: Acute Code(s): Z98.891 - HISTORY OF UTERINE SCAR FROM PREVIOUS SURGERY
--- NOTE | 2025-01-11 09:36 | PCM.DS ---
Discharge Summary Date of Admission: 01/09/25 04:51 Admitting Physician: SUE ZARAGOZA DO Consults: Consults on Case 01/09/25 05:00 Notify Anesthesia Provider PRN Notify Physician OF ADMISSION 01/09/25 12:49 Navigation ONCE Primary Care Provider: AFIA SALEH NP Allergies Allergies No Known Drug Allergies Allergy (Verified 06/03/24 14:49) Hospital Summary - Hospital Course Hospital Course: pt admitted on jan 09 for undergoing a repeat csection with tubal sterilization at 38 wks gestation with hx of gestational htn and was done so without complication delivering live baby boy. pt underwent gretel technique sterilization as she did not want her tubes removed in case for future . during postop period did well able to ambulate and tolerate diet and had postop hgb at 9.2 with stable vitals. pt had been on labetolol 100mg bid prior to delivery and did not require labetolol after delivery. pt was given rx of percocet for pain management and was advised to fu in office next monday for postop evaluation. all questions answered to her satisfaction and at this time stable for discharge. - Vitals & Intake/Output Vital Signs: Vital Signs Temperature 97.8 F 01/11/25 09:08 Pulse Rate 88 01/11/25 09:08 Respiratory Rate 17 01/11/25 09:08 Blood Pressure 133/82 01/11/25 09:08 O2 Sat by Pulse Oximetry 98 01/11/25 09:08 Intake & Output: Intake & Output 01/08/25 01/09/25 01/10/25 01/11/25 11:59 11:59 11:59 11:59 Intake Total 8100 Output Total 50 2200 Balance -50 5900 Weight 117.934 kg - Lab Result Diagrams: 01/10/25 05:05 Micro Results-Entire Visit: Microbiology 01/09/25 08:52 Urine Culture - Final Urine, Catheterized NO GROWTH 01/09/25 05:00 Urine Culture - Final Urine, Void <10K NORMAL SKIN VALDEZ PROBABLE SKIN CONTAMINANT - Procedures and Test Procedures and Tests throughout Hospitalization: Therapy Orders & Screens 01/09/25 08:55 Standby ROUTINE Comment: Diagnosis: IUP Final Diagnosis/Problem List - Final Discharge Diagnosis/Problem (1) S/P repeat low transverse Current Visit: Yes Status: Acute Code(s): Z98.891 - HISTORY OF UTERINE SCAR FROM PREVIOUS SURGERY - Discharge Disposition: Home, Self-Care Condition: Stable Prescriptions: New Oxycodone HCl/Acetaminophen [Percocet 5-325 mg Tablet] 1 each PO Q6H PRN PRN 7 Days #20 tablet MDD 4 PRN Reason: Moderate To Severe Pain No Action Pnv No.103/Folic/Om3s/Fish Oil [ Gummies] 1 tab PO DAILY Aspirin 81 gm Chew [Baby Aspirin 81 mg Chew] 162 mg PO DAILY Ferrous Sulfate 325 mg [Feosol 325 mg] 325 mg PO BID Instructions: - Discharge instructions Follow up with: SUE ZARAGOZA DO [ACTIVE STAFF, OBSTETRICS-GYNECOLOGY] - 01/15/25 1:30 pm Forms: OB Discharge Instructions
--- NOTE | 2025-01-13 13:44 | OP ---
SURGERY DATE/TIME: 01/09/2025 [id number] PREOPERATIVE DIAGNOSES: Intrauterine at 38 weeks' gestation with gestational hypertension, previous section, desiring tubal sterilization, for repeat section, declined trial of labor. POSTOPERATIVE DIAGNOSES: Intrauterine at 38 weeks' gestation with gestational hypertension, previous section, desiring tubal sterilization, for repeat section, declined trial of labor. PROCEDURE: Repeat section, low flap transverse uterine incision, Pfannenstiel skin incision, bilateral tubal sterilization via Reyna technique. SURGEON: Efrain Leblanc DO SENIOR ELECTRICAL ESTIMATOR: Camilla Peña CST ANESTHESIA: Spinal. ESTIMATED BLOOD LOSS: 697 mL. COMPLICATIONS: None. FINDINGS: The risks, benefits, indications, and alternatives of the procedure were reviewed with the patient prior to the procedure. The patient understood the risks of infection, bleeding, bowel injury, bladder injury, ureteral injury, pelvic infection, thromboembolic disorder and possible future associated with having her tubal sterilization as well as difficulty in obtaining secondary to tubal sterilization. Patient understands that we would be doing the Buchanan technique with not removal of the fallopian tubes, which renders a possibility of future after tubal sterilization since partial salpingectomy would be performed. All other forms of control have been discussed with the patient, as patient desired not to have her tubes removed during the procedure. Again, all other forms of control were discussed with the patient such as contraceptions, intrauterine device, and all other forms of control; however, desires to have modified Buchanan technique as her technique of choice for sterilization. Patient also understands the risk of ectopic that can be associated with this procedure; however, desires to continue to have this procedure done. DESCRIPTION OF PROCEDURE AND FINDINGS: From this point, patient was taken to the operating room where her spinal anesthesia was found to be adequate. She was then prepared and draped in the normal sterile fashion in the dorsal supine position with leftward tilt. A Pfannenstiel skin incision was made with a scalpel and carried through to the underlying layer of the fascia with the Bovie. The fascia was then incised in the midline, and the incision extended laterally with the Segura scissors. The superior aspect of the fascial incision was then grasped with the Usman clamps, elevated, and the underlying rectus muscle dissected off bluntly. Attention was then turned to the inferior aspect of this incision which in a similar fashion was grasped, tented up with the Usman clamps, and the rectus muscle dissected off bluntly. The rectus muscles were then in the midline, and the peritoneum identified, tented up, and entered sharply with the Metzenbaum scissors. The peritoneal incision was then extended superiorly and inferiorly with good visualization of the bladder. The bladder blade was then inserted, and the vesicouterine peritoneum identified, grasped with the pickups, and entered sharply with the Metzenbaum scissors. This incision was then extended laterally and the bladder flap created digitally. The bladder blade was then reinserted and the lower uterine segment incised in a transverse fashion with the scalpel. The uterine incision was then extended laterally digitally. The bladder blade was then removed, and the infant's head was delivered atraumatically. It was noted to have a nuchal cord, which was loose. The nose and mouth were suctioned with a bulb suction, the cord clamped and cut. The was then handed off to awaiting nurses. The placenta was then removed manually, the uterus exteriorized and cleared of all clots and debris. The uterine incision was repaired with 1-0 chromic in a running locked fashion. A second layer of the same suture was used to obtain excellent hemostasis. From this point, the Mary clamp was used and was placed approximately 4 cm from the cornua region. A 3 cm segment of the tube was then ligated with a free-tie plain gut and excised. Good hemostasis was noted, and the same procedure was performed on the right tube where a 3 cm segment of the tube was then ligated with a free-tie plain gut and excised in a similar fashion. From this point, the uterus was then returned to the abdomen. The gutters were cleared of all clots, and the peritoneum and muscle were closed in an interrupted fashion using 2-0 chromic suture. The fascia was then reapproximated with 0 Vicryl in running fashion. The subcutaneous layer was closed with 3-0 Vicryl suture, and the skin was closed with absorbable melo called Insorb. The patient tolerated the procedure well. Sponge, lap, needle, and instrument counts were correct x2. The patient delivered a live baby boy at 8:40 a.m., Apgars 9 at one minute and 9 at five minutes. The weight of the baby was 7 pounds 6 ounces.
== END 2025-01-11 14:05 | disposition home or self-care (01) | DRG 785 ==
LOC: OB 04:51 → OBSVTOIN 04:51
PROVIDERS: ADMIT Obstetrics & Gynecology; ATTEND Obstetrics & Gynecology
PROC: 10D00Z1 Extraction of Products of Conception, Low, Open Approach (ICD-10-PCS; principal; 2025-01-09)
PROC: 0UB70ZZ Excision of Bilateral Fallopian Tubes, Open Approach (ICD-10-PCS; 2025-01-09)
DX: O69.81X0 Labor and delivery complicated by cord around neck, without compression, not applicable or unspecified (principal); O34.219 Maternal care for unspecified type scar from previous cesarean delivery; O13.4 Gestational [pregnancy-induced] hypertension without significant proteinuria, complicating childbirth; Z3A.38 38 weeks gestation of pregnancy; Z37.0 Single live birth; Z30.2 Encounter for sterilization